=== PATIENT | male | born 1945 | race Caucasian/White ===

== ENCOUNTER 2018-08-23 14:06 | Inpatient (IN) ==
[2018-08-23] MEDS ORDERED: Acetaminophen 325 MG TABLET PO PRN (20:45)
[2018-08-23] MEDS ORDERED: Ondansetron ODT 4 MG TAB.RAPDIS SL PRN (20:45)
[2018-08-23] MEDS ORDERED: Mag Hydrox/Al Hydrox/Simeth 30 ML UDC PO PRN (20:45)
[2018-08-23] MEDS: *HR* Ticagrelor 90 MG TABLET PO SCH (22:00)
[2018-08-23] MEDS: Apixaban 5 MG TABLET PO SCH (22:00)
[2018-08-23] MEDS: Albuterol 2.5 MG/3 ML NEBULIZER IH SCH (22:23)
[2018-08-24 05:55] LABS: Basophils % 0.2 %; Eosinophils % 0.1 %; Hematocrit 44.7 % (37.5-50.1); Hemoglobin 15.1 g/dL (12.9-16.9); Immature Granulocytes % 0.5 % (0-4); Lymphocytes # 2.3 K/mcL (0.6-4.6); Mean Corpuscular HGB Conc 33.8 g/dL (31.6-35.5); Mean Corpuscular Hemoglobin 29.3 pg (28.0-33.3); Mean Corpuscular Volume 86.6 fL (83.0-100.0); Mean Platelet Volume 11.1 fL (9.4-12.4); Monocytes # 1.7 K/mcL (0.0-1.3); Monocytes % 9.4 %; Neutrophils # 13.5 K/mcL (1.6-8.9); Platelet Count 345 K/mcL (140-400); Red Blood Count 5.16 M/mcL (4.19-5.50); Segmented Neutrophils % 76.8 %; White Blood Count 17.6 K/mcL (4.3-11.1)
[2018-08-24 06:14] LABS: Alanine Aminotransferase 42 Units/L (7-52); Albumin 3.2 g/dL (3.5-5.7); Albumin/Globulin Ratio 1.1 (1.1-2.2); Alkaline Phosphatase 45 Units/L (34-104); Aspartate Amino Transferase 20 Units/L (13-39); BUN/Creatinine Ratio 20 (6-26); Bilirubin,Total 0.8 mg/dL (0.3-1.0); Blood Urea Nitrogen 21 mg/dL (8-23); Calcium 8.4 mg/dL (8.6-10.3); Carbon Dioxide 28 mEq/L (23-29); Chloride 105 mEq/L (98-107); Globulin 2.9 g/dL (2.4-3.5); Glucose 109 mg/dL (70-105); Magnesium 2.5 mg/dL (1.6-2.6); Osmolality,Calculated 292 (280-300); Potassium 3.4 mEq/L (3.5-5.1); Sodium 139 mEq/L (136-145); Total Protein 6.1 g/dL (6.4-8.9); eGFR For African Americans > 60 (> 60); eGFR For Non-African Americans > 60 (> 60)
[2018-08-24] MEDS: Albuterol 2.5 MG/3 ML NEBULIZER IH SCH ×4 (06:54→19:17)
[2018-08-24] MEDS ORDERED: BISOPROLOL PO SCH (09:00)
[2018-08-24] MEDS ORDERED: PRAVASTATIN 40MG PO SCH (09:00)
[2018-08-24] MEDS: *HR* Ticagrelor 90 MG TABLET PO SCH ×2 (09:12→21:24)
[2018-08-24] MEDS: Diltiazem CD (24hr) 180 MG CAPSULE PO SCH (09:13)
[2018-08-24] MEDS: Apixaban 5 MG TABLET PO SCH ×2 (09:13→21:24)
[2018-08-24] MEDS: Famotidine 20 MG TABLET PO SCH (09:13)
[2018-08-24] MEDS: hydroCHLOROthiazide 25 MG TABLET PO SCH (09:13)
[2018-08-24] MEDS: Loratadine/Pseudophed (12 HR) 1 EACH TABLET PO SCH (09:16)
--- NOTE | 2018-08-24 10:21 | Internal Med History&Physical ---
Date of Encounter: 08/24/18 Time of Encounter: 10:14 Assessment and Plan (1) CVA (cerebral vascular accident) Current visit: Yes Status: Acute Patient was transferred to this facility from an area hospital he was treated for an acute left CVA resulting in her right hemiparesis. Patient shows severe weakness to his right upper extremity, more so approximately with a muscle strength of 1/5. Distally on the right arm patient has a 4/5 muscle strength for grasp. Right lower extremity and 4/5 muscle strength. Left extremity is 5/5 muscle strength. Has had an increase of muscle strength right distal arm since his initial CVA. Patient was transferred here for continued rehabilitation due to his right hemiparesis. Patient also shows a 60% right coronary artery stenosis which was noted to be treated nonsurgically at this time. During his stay they had changed him from Plavix to Brilinta preparation of medical management patient also remains on Eliquis at this time. We will continue with current medications and plan a care. We will have a systolic blood pressure goal of less than 160. Therapy evaluation pending. Qualifiers: CVA mechanism: unspecified Qualified Code(s): I63.9 - Cerebral infarction, unspecified (2) COPD (chronic obstructive pulmonary disease) Current visit: Yes Status: Acute No acute issues. Patient's lungs are clear throughout upper choi but noted diminished basilar choi with scattered rales. Patient denies any dyspnea or productive cough. We will continue with current bronchodilators and medications. Qualifiers: Emphysema type: unspecified Qualified Code(s): J43.9 - Emphysema, unspecified (3) Atrial fibrillation Current visit: Yes Status: Acute Patient continues with atrial fibrillation with a controlled ventricular rate less than 100. We will continue with current medications which include Eliquis. Qualifiers: Atrial fibrillation type: unspecified Qualified Code(s): I48.91 - Unspeci fied atrial fibrillation (4) CAD (coronary artery disease) Current visit: Yes Status: Acute No acute issues. Patient with a history of coronary stents. Remains on purulent at this time. As any chest palpitations or discomforts. We will continue with current medications Qualifiers: Coronary Disease-Associated Artery/Lesion type: unspecified vessel or lesion type Associated angina: angina presence unspecified Qualified Code(s): I25.10 - Atherosclerotic heart disease of [place] coronary artery without angina pectoris (5) HTN (hypertension) Current visit: Yes Status: Acute Vital signs have remained stable during his stay. We will maintain a systolic blood pressure goal of less than 160. Qualifiers: Hypertension type: unspecified Qualified Code(s): I10 - Essential (primary) hypertension Internal Medicine - H&P: HPI Chief complaint: left CVA Admitted From: Hospital to Hospital Transfer Plans for Post Hospital Care: Home History of present illness: Mr. Paige is a 72 year old male, who was transferred to this facility from an [facility] where he was treated for an acute left central gyrus infarct, which resulted in right hemiparesis. Patient shows significant proximal weakness to the right upper extremity which is 1/5 but his distal movement is at 4/5 with hand grasp. His right lower extremity shows 4+/5. Left extremities currently are 5/5. Patient also showed a 60% stenosis of the left carotid artery, which no surgical interventions were performed during his stay and will be followed medically as an outpatient. Patient did have some changes to his medications to include a switch from Plavix to Brilinta in response to his stenosis. Patient was originally on the Plavix due to his history of coronary artery disease type included coronary stents. Patient also with atrial fibrillation and remains on Eliquis. Patient also with a history of COPD, hypertension and idiopathic angioedema. Patient states that he occasionally has an allergic-type flareup in which she takes prednisone and Benadryl when necessary but states he has not had one in several weeks. Patient's hospital recovery was uneventful and he was transferred to this facility for further rehabilitation due to his right hemiparesis and generalized weakness. Patient denies any current discomforts or shortness of breath. Patient denies any fever/chills or productive cough. He denies any dyspnea with exertion or orthopnea. Denies any dysuria. Patient was noted to have leukocytosis this morning with a WBC of 17.6. Per medical records patient had a elevated WBC while hospitalized at ranging between 1314. Past Med Surg Social Fam HX - Past Medical History Medical history: arthritis, atrial fibrillation, COPD, CVA, glaucoma, hyperlipidemia, hypertension Additional medical history: 3 cardiac stents, cardiac stenosis - Past Surgical History Surgical History: splenectomy, other Additional surgical history: fatty tumor removed from left leg, heart cath 2011, enlarged prostate, colonoscopy, intracocular lens - Social History Smoking Status: Never smoker Smokeless Tobacco Status: Yes Alcohol use: none Drug use: none - Family History Father Age: 47 Living Status: Hx Family Cardiac Disorders: Yes Mother Age: 85 Living Status: Hx Family Cardiac Disorders: Yes Sister Living Status: Hx Family Cancer: Yes Internal Medicine - H&P: Meds Albuterol Neb [Proventil Neb] 2.5 mg IH QID 08/23/18 [History] Apixaban [Eliquis] 5 mg PO BID 08/23/18 [History] Beclomethasone Dip 40mcg REDIH [Qvar 40 mcg REDIHALER] 2 puff IH BID 08/23/18 [History] Bisoprolol Fumarate [Zebeta] 20 mg PO DAILY 08/23/18 [History] Diltiazem CD (24hr) [Cardizem CD] 180 mg PO DAILY 08/23/18 [History] Famotidine [Pepcid] 20 mg PO DAILY 08/23/18 [History] Loratadine/Pseudophed (12 HR) [Claritin D (12HR)] 1 each PO DAILY 08/23/18 [History] Pravastatin Sodium [Pravachol] 40 mg PO DAILY 08/23/18 [History] Ticagrelor [Brilinta] 90 mg PO BID 08/23/18 [History] hydroCHLOROthiazide [Hydrochlorothiazide] 25 mg PO DAILY 08/23/18 [History] Allergy/AdvReac Type Severity Reaction Status Date / Time aspirin AdvReac See Verified 08/23/18 20:38 Comments atorvastatin [From Lipitor] AdvReac See Verified 08/23/18 20:38 Comments Iodinated Contrast- Oral and AdvReac Difficulty Verified 08/23/18 20:39 IV Dye Breathing peanut AdvReac Difficulty Verified 08/23/18 20:38 Breathing Penicillins [PCN] AdvReac See Verified 08/23/18 20:39 Comments All Systems PM: A 10-system review of systems was performed and is negative for pertinent findings except as documented above in the HPI. - Constitutional Constitutional: as per HPI, no chills, no fever(s), no night sweats - EENT Eyes: as per HPI, no change in vision, no discharge, no pain, no photophobia Ears: as per HPI, no ear discharge, no ear pain, no tinnitus Nose, mouth and throat: as per HPI, no dysphagia, no nasal discharge, no neck pain, no sore throat - Breasts Breasts: as per HPI - Cardiovascular Cardiovascular ROS IM: as per HPI, no chest pain, no diaphoresis, no dyspnea, no lightheadedness, no palpitations, no syncope - Respiratory Respiratory: as per HPI, no cough, no dyspnea, no wheezing, no excessive phlegm production - Gastrointestinal Gastrointestinal: as per HPI, no abdominal pain, no diarrhea, no hematemesis, no hematochezia, no melena, no nausea, no vomiting - Genitourinary Genitourinary ROS male: as per HPI - Musculoskeletal Musculoskeletal ROS IM: as per HPI, no numbness, no tingling - Integumentary Integumentary IM: as per HPI, no rash, no unusual bruising - Neurological Neurological ROS: as per HPI, no confusion, no convulsions, no focal weakness, no numbness, no tingling, no tremor(s) - Psychiatric Psychiatric: as per HPI - Endocrine Endocrine IM: as per HPI - Hematologic/Lymphatic Hematologic/Lymphatic: no easy bruising - Constitutional Vitals: Temp Pulse Resp BP Pulse Ox 98.1 F 66 16 128/48 93 08/24/18 07:32 08/24/18 07:32 08/24/18 07:32 08/24/18 07:32 08/24/18 07:32 General appearance: Present: A&O X 3, pleasant - Head Head exam: Present: atraumatic, normocephalic - Eye Eye exam: Present: PERRL, conjuntiva pink, sclera anicteric Pupils: Present: PERRL - Neck Neck exam general surgery: Present: supple, trachea midline. Absent: lymphadenopathy - Respiratory Respiratory exam: Present: CTAB, rales. Absent: accessory muscle use, rhonchi, wheezes Additional comments: Lungs are clear throughout upper choi and noted diminished breath sounds to lower with scattered fine rales heard posteriorly to the bases. Respiratory effort appears relaxed while at rest. No productive cough noted. - Cardiovascular Cardiovascular exam: Present: irregular rhythm, RRR, +S1, +S2. Absent: diastolic murmur, gallop, rubs, systolic murmur Additional comments: Patient's heart rate remains irregular with a controlled ventricular rate less than 100. - GI/Abdominal GI/Abdominal exam: Present: normal bowel sounds, soft, no peritoneal signs. Absent: distended, tenderness - Extremities Exam Extremities exam: Present: warm, radial pulses palpable and symmetrical. Absent: calf tenderness, cyanotic, pedal edema - Neurological Exam Neurological exam: Present: CN II-XII intact, oriented X3. Absent: pronater drift, facial droop, speech deficit Additional comments: Patient has right hemiparesis with his right upper extremity showing more pronounced weakness proximally with a muscle strength of 1/5 to BF and TE. Right hand grasp and wrist flex/ext at 4/5. RLE at 4+/5 MS. LE at 5/5 - Skin Skin exam: Present: dry, intact Internal Med - H&P Results - Labs CBC & Chem 7: 08/24/18 05:10 08/24/18 05:10 Labs: Short CBC 08/24/18 Range/Units 05:10 WBC 17.6 H (4.3-11.1) K/mcL Hgb 15.1 (12.9-16.9) g/dL Hct 44.7 (37.5-50.1) % Plt Count 345 (140-400) K/mcL Neutrophils # 13.5 H (1.6-8.9) K/mcL BMP 08/24/18 05:10 Sodium 139 Potassium 3.4 L Chloride 105 Carbon Dioxide 28 BUN 21 Creatinine 1.05 Glucose 109 H Calcium 8.4 L Liver Function 08/24/18 Range/Units 05:10 Total Bilirubin 0.8 (0.3-1.0) mg/dL AST 20 (13-39) Units/L ALT 42 (7-52) Units/L Alkaline Phosphatase 45 (34-104) Units/L Albumin 3.2 L (3.5-5.7) g/dL
[2018-08-24] MEDS ORDERED: Albuterol 2.5 MG/3 ML NEBULIZER IH PRN (20:12)
[2018-08-25] MEDS: Albuterol 2.5 MG/3 ML NEBULIZER IH SCH ×2 (07:59→17:58)
[2018-08-25] MEDS: hydroCHLOROthiazide 25 MG TABLET PO SCH (09:31)
[2018-08-25] MEDS: Famotidine 20 MG TABLET PO SCH (09:31)
[2018-08-25] MEDS: Loratadine/Pseudophed (12 HR) 1 EACH TABLET PO SCH (09:31)
[2018-08-25] MEDS: Diltiazem CD (24hr) 180 MG CAPSULE PO SCH (09:31)
[2018-08-25] MEDS: Apixaban 5 MG TABLET PO SCH ×2 (09:32→21:22)
[2018-08-25] MEDS: *HR* Ticagrelor 90 MG TABLET PO SCH ×2 (09:32→21:22)
[2018-08-25] MEDS: PRAVASTATIN 40MG PO SCH (09:35)
[2018-08-25] MEDS: BISOPROLOL PO SCH (09:38)
--- NOTE | 2018-08-25 11:04 | Internal Med Progress Note ---
Date of Encounter: 08/25/18 Time of Encounter: 11:02 - Assessment and plan (1) CVA (cerebral vascular accident) Current Visit: Yes Status: Acute Assessment and plan: No acute issues. Patient's neurological exam remains unchanged since admission. Patient has been dissipating and physical therapy and feels that he has shown some improvement in strength to his right upper extremity. Denies any current issues. We will continue with current medications and planning care. Qualifiers: CVA mechanism: unspecified Qualified Code(s): I63.9 - Cerebral infarction, unspecified (2) COPD (chronic obstructive pulmonary disease) Current Visit: Yes Status: Acute Assessment and plan: No acute issues. Patient's lungs remain clear with diminished breath sounds to the lower choi. No productive cough. Patient denies any dyspnea. We will continue with current medications and therapy Qualifiers: Emphysema type: unspecified Qualified Code(s): J43.9 - Emphysema, unspecified (3) Atrial fibrillation Current Visit: Yes Status: Acute Assessment and plan: No acute issues. Patient's heart rate remains irregular but he has a controlled ventricular rate less than 100. Patient will continue with current medications to include Eliquis. Qualifiers: Atrial fibrillation type: unspecified Qualified Code(s): I48.91 - Unspecified atrial fibrillation (4) CAD (coronary artery disease) Current Visit: Yes Status: Acute Assessment and plan: No acute issues. Patient denies any chest palpitations or discomforts. We will continue with his current medications. Tolerating therapy well. Qualifiers: Coronary Disease-Associated Artery/Lesion type: unspecified vessel or lesion type Associated angina: angina presence unspecified Qualified Code(s): I25.10 - Atherosclerotic heart disease of [place] coronary artery without angina pectoris (5) HTN (hypertension) Current Visit: Yes Status: Acute Assessment and plan: Patient systolic blood pressure is slightly elevated in the 150s but he has maintained the goal systolic pressure less than 160. We will continue with current medications. Qualifiers: Hypertension type: unspecified Qualified Code(s): I10 - Essential (primary) hypertension - Time Spent With Patient less than 15 minutes - Subjective Interval history: Patient appears relaxed currently denies any discomforts or shortness of breath. Patient states that he feels his strength is coming back to his right arm, which continues to remains proximally flaccid. - Constitutional Vitals: Temp Pulse Resp BP Pulse Ox 97.6 F 64 18 151/83 93 08/25/18 07:12 08/25/18 07:12 08/25/18 07:12 08/25/18 07:12 08/25/18 07:12 General appearance: Present: A&O X 3, pleasant - Head Head exam: Present: atraumatic, normocephalic - Eye Eye exam: Present: PERRL, conjuntiva pink, sclera anicteric Pupils: Present: PERRL - Neck Neck exam general surgery: Present: supple, trachea midline. Absent: lymphadenopathy - Respiratory Respiratory exam: Present: decreased breath sounds, CTAB. Absent: accessory muscle use, rales, rhonchi, wheezes - Cardiovascular Cardiovascular exam: Present: irregular rhythm, RRR, +S1, +S2. Absent: diastolic murmur, gallop, rubs, systolic murmur - GI/Abdominal GI/Abdominal exam: Present: normal bowel sounds, soft, no peritoneal signs. Absent: distended, tenderness - Extremities Exam Extremities exam: Present: warm, radial pulses palpable and symmetrical. Ab sent: calf tenderness, cyanotic, pedal edema - Neurological Exam Neurological exam: Present: CN II-XII intact, oriented X3. Absent: pronater drift, facial droop, speech deficit Additional comments: Patient continues with right hemiparesis. Right upper extremity is at a 2/5 proximally but distally patient is at 4/5 with hand grasp and wrist flex/ext. right lower extremity of 4/5. Left extremities of 5/5. - Skin Skin exam: Present: dry, intact Internal Medicine: Result - Labs CBC & Chem 7: 08/24/18 05:10 08/24/18 05:10 Consult Discharge Plan - Plan Referrals: Maulik Gregory MD [Primary Care Provider] -
[2018-08-25] MEDS: Melatonin 3 MG TABLET PO PRN (21:22)
[2018-08-26] MEDS: Albuterol 2.5 MG/3 ML NEBULIZER IH SCH ×2 (05:28→18:17)
[2018-08-26] MEDS: *HR* Ticagrelor 90 MG TABLET PO SCH ×2 (08:45→20:50)
[2018-08-26] MEDS: Famotidine 20 MG TABLET PO SCH (08:45)
[2018-08-26] MEDS: BISOPROLOL PO SCH (08:46)
[2018-08-26] MEDS: Diltiazem CD (24hr) 180 MG CAPSULE PO SCH (08:46)
[2018-08-26] MEDS: hydroCHLOROthiazide 25 MG TABLET PO SCH (08:46)
[2018-08-26] MEDS: Apixaban 5 MG TABLET PO SCH ×2 (08:46→20:49)
[2018-08-26] MEDS: PRAVASTATIN 40MG PO SCH (08:46)
[2018-08-26] MEDS: Loratadine/Pseudophed (12 HR) 1 EACH TABLET PO SCH (08:46)
--- NOTE | 2018-08-26 18:05 | Internal Med Progress Note ---
Date of Encounter: 08/26/18 Time of Encounter: 15:55 - Subjective Interval history: - Assessment and plan (1) CVA (cerebral vascular accident) Current Visit: Yes Status: Acute Assessment and plan: Pt is participating in therapy. His neurological exam remains unchanged since admission. Patient has been doing well in physical therapy and feels that he has shown some improvement in stren gth to his right upper extremity. Denies any current issues. We will continue with current medications and planning care. Qualifiers: CVA mechanism: unspecified Qualified Code(s): I63.9 - Cerebral infarction, unspecified (2) COPD (chronic obstructive pulmonary disease) Current Visit: Yes Status: Acute Assessment and plan: No acute issues. Patient's lungs remain clear with diminished breath sounds to the lower choi. No productive cough. Patient denies any dyspnea. We will continue with current medications and therapy Qualifiers: Emphysema type: unspecified Qualified Code(s): J43.9 - Emphysema, unspecified (3) Atrial fibrillation Current Visit: Yes Status: Acute Assessment and plan: no CP no sob. Patient's heart rate remains irregular but he has a controlled ventricular rate less than 100. Patient will continue with current medications to include Eliquis. Qualifiers: Atrial fibrillation type: unspecified Qualified Code(s): I48.91 - Unspecified atrial fibrillation (4) CAD (coronary artery disease) Current Visit: Yes Status: Acute Assessment and plan: No acute issues. Patient denies any chest palpitations or discomforts. We will continue with his current medications. Tolerating therapy well. Qualifiers: Coronary Disease-Associated Artery/Lesion type: unspecified vessel or lesion type Associated angina: angina presence unspecified Qualified Code(s): I25.10 - Atherosclerotic heart disease of [place] coronary artery without angina pectoris (5) HTN (hypertension) Current Visit: Yes Status: Acute Assessment and plan: Patient systolic blood pressure is slightly elevated in the 150s but he has maintained the goal systolic pressure less than 160. We will continue with current medications. Qualifiers: Hypertension type: unspecified Qualified Code(s): I10 - Essential (primary) hypertension - Time Spent With Patient less than 15 minutes - Subjective Interval history: Patient appears to be in good mood he says he has more energy. denies any discomforts or shortness of breath. Patient states that he feels his strength is coming back to his right arm, which continues to remains proximally flaccid. EXAM General appearance: Present: A&O X 3, pleasant - Head Head exam: Present: atraumatic, normocephalic - Eye Eye exam: Present: PERRL, conjuntiva pink, sclera anicteric Pupils: Present: PERRL - Neck Neck exam general surgery: Present: supple, trachea midline. Absent: lymphadenopathy - Respiratory Respiratory exam: Present: decreased breath sounds, CTAB. Absent: accessory muscle use, rales, rhonchi, wheezes - Cardiovascular Cardiovascular exam: Present: irregular rhythm, RRR, +S1, +S2. Absent: diastolic murmur, gallop, rubs, systolic murmur - GI/Abdominal GI/Abdominal exam: Present: normal bowel sounds, soft, no peritoneal signs. Absent: distended, tenderness - Extremities Exam Extremities exam: Present: warm, radial pulses palpable and symmetrical. Absent: calf tenderness, cyanotic, pedal edema - Neurological Exam Neurological exam: Present: CN II-XII intact, oriented X3. Absent: pronater drift, facial droop, speech deficit Additional comments: Patient continues with right hemiparesis. Right upper extremity is at a 2/5 proximally but distally patient is at 4/5 with hand grasp and wrist flex/ext. right lower extremity of 4/5. Left extremities of 5/5. - Skin Skin exam: Present: dry, intact - Constitutional Vitals: Temp Pulse Resp BP Pulse Ox 97.8 F 53 18 122/70 97 08/26/18 07:12 08/26/18 07:12 08/26/18 07:12 08/26/18 07:12 08/26/18 07:12 General appearance: Present: A&O X 3, pleasant Internal Medicine: Result - Labs CBC & Chem 7: 08/24/18 05:10 08/24/18 05:10 Consult Discharge Plan - Plan Referrals: Maulik Gregory MD [Primary Care Provider] -
[2018-08-26] MEDS: Melatonin 3 MG TABLET PO PRN (20:49)
[2018-08-27] MEDS: Albuterol 2.5 MG/3 ML NEBULIZER IH SCH ×2 (06:02→18:05)
[2018-08-27] MEDS: Famotidine 20 MG TABLET PO SCH (09:05)
[2018-08-27] MEDS: Apixaban 5 MG TABLET PO SCH ×2 (09:05→20:14)
[2018-08-27] MEDS: Loratadine/Pseudophed (12 HR) 1 EACH TABLET PO SCH (09:05)
[2018-08-27] MEDS: hydroCHLOROthiazide 25 MG TABLET PO SCH (09:05)
[2018-08-27] MEDS: BISOPROLOL PO SCH (09:06)
[2018-08-27] MEDS: *HR* Ticagrelor 90 MG TABLET PO SCH ×3 (09:06→20:14)
[2018-08-27] MEDS: PRAVASTATIN 40MG PO SCH (09:06)
[2018-08-27] MEDS: Diltiazem CD (24hr) 180 MG CAPSULE PO SCH (09:06)
--- NOTE | 2018-08-27 19:26 | Internal Med Progress Note ---
Date of Encounter: 08/27/18 Time of Encounter: 14:55 - Subjective Interval history: - Assessment and plan (1) CVA (cerebral vascular accident) Current Visit: Yes Status: Acute Assessment and plan: Pt is participating in therapy. His neurological exam remains unchanged since admission. Patient has been doing well in physical therapy and feels that he has shown some improvement in stren gth to his right upper extremity. Denies any current issues. We will continue with current medications and planning care. Qualifiers: CVA mechanism: unspecified Qualified Code(s): I63.9 - Cerebral infarction, unspecified (2) COPD (chronic obstructive pulmonary disease) Current Visit: Yes Status: Acute Assessment and plan: No acute issues. Patient's lungs remain clear with diminished breath sounds to the lower choi. No productive cough. Patient denies any dyspnea. We will continue with current medications and therapy Qualifiers: Emphysema type: unspecified Qualified Code(s): J43.9 - Emphysema, unspecified (3) Atrial fibrillation Current Visit: Yes Status: Acute Assessment and plan: no CP no sob. Patient's heart rate remains irregular but he has a controlled ventricular rate less than 100. Patient will continue with current medications to include Eliquis. Qualifiers: Atrial fibrillation type: unspecified Qualified Code(s): I48.91 - Unspecified atrial fibrillation (4) CAD (coronary artery disease) Current Visit: Yes Status: Acute Assessment and plan: No acute issues. Patient denies any chest palpitations or discomforts. We will continue with his current medications. Tolerating therapy well. Qualifiers: Coronary Disease-Associated Artery/Lesion type: unspecified vessel or lesion type Associated angina: angina presence unspecified Qualified Code(s): I25.10 - Atherosclerotic heart disease of [place] coronary artery without angina pectoris (5) HTN (hypertension) Current Visit: Yes Status: Acute Assessment and plan: Patient systolic blood pressure is slightly elevated in the 150s but he has maintained the goal systolic pressure less than 160. We will continue with current medications. Qualifiers: Hypertension type: unspecified Qualified Code(s): I10 - Essential (primary) hypertension - Time Spent With Patient less than 15 minutes - Subjective Interval history: Patient appears to be in good mood he says he has more energy. denies any discomforts or shortness of breath. Patient states that he feels his strength is coming back to his right arm, which continues to remains proximally flaccid. EXAM General appearance: Present: A&O X 3, pleasant - Head Head exam: Present: atraumatic, normocephalic - Eye Eye exam: Present: PERRL, conjuntiva pink, sclera anicteric Pupils: Present: PERRL - Neck Neck exam general surgery: Present: supple, trachea midline. Absent: lymphadenopathy - Respiratory Respiratory exam: Present: decreased breath sounds, CTAB. Absent: accessory muscle use, rales, rhonchi, wheezes - Cardiovascular Cardiovascular exam: Present: irregular rhythm, RRR, +S1, +S2. Absent: diastolic murmur, gallop, rubs, systolic murmur - GI/Abdominal GI/Abdominal exam: Present: normal bowel sounds, soft, no peritoneal signs. Absent: distended, tenderness - Extremities Exam Extremities exam: Present: warm, radial pulses palpable and symmetrical. Absent: calf tenderness, cyanotic, pedal edema - Neurological Exam Neurological exam: Present: CN II-XII intact, oriented X3. Absent: pronater drift, facial droop, speech deficit Additional comments: Patient continues with right hemiparesis. Right upper extremity is at a 2/5 proximally but distally patient is at 4/5 with hand grasp and wrist flex/ext. right lower extremity of 4/5. Left extremities of 5/5. - Skin Skin exam: Present: dry, intact - Constitutional Vitals: Temp Pulse Resp BP Pulse Ox 97.6 F 78 14 146/72 96 08/27/18 18:42 08/27/18 18:42 08/27/18 18:42 08/27/18 18:42 08/27/18 18:42 General appearance: Present: A&O X 3, pleasant Internal Medicine: Result - Labs CBC & Chem 7: 08/24/18 05:10 08/24/18 05:10 Consult Discharge Plan - Plan Referrals: Maulik Gregory MD [Primary Care Provider] -
[2018-08-28] MEDS: PRAVASTATIN 40MG PO SCH (08:57)
[2018-08-28] MEDS: Loratadine/Pseudophed (12 HR) 1 EACH TABLET PO SCH (08:57)
[2018-08-28] MEDS: BISOPROLOL PO SCH (08:57)
[2018-08-28] MEDS: hydroCHLOROthiazide 25 MG TABLET PO SCH (08:57)
[2018-08-28] MEDS: Apixaban 5 MG TABLET PO SCH ×2 (08:57→21:15)
[2018-08-28] MEDS: Famotidine 20 MG TABLET PO SCH (08:57)
[2018-08-28] MEDS: *HR* Ticagrelor 90 MG TABLET PO SCH ×2 (08:57→21:16)
[2018-08-28] MEDS: Diltiazem CD (24hr) 180 MG CAPSULE PO SCH (08:57)
[2018-08-28] MEDS: Albuterol 2.5 MG/3 ML NEBULIZER IH SCH ×2 (10:03→18:27)
--- NOTE | 2018-08-28 10:56 | Internal Med Progress Note ---
Date of Encounter: 08/28/18 Time of Encounter: 10:54 - Assessment and plan (1) CVA (cerebral vascular accident) Current Visit: Yes Status: Acute Assessment and plan: Continue PT, OT and ST. Will follow progress. No new neurological deficits. Assist with ADLs as necessary. Follow up with neurologist as scheduled. Qualifiers: CVA mechanism: unspecified Qualified Code(s): I63.9 - Cerebral infarction, unspecified (2) COPD (chronic obstructive pulmonary disease) Current Visit: Yes Status: Acute Assessment and plan: Stable. Monitor. Qualifiers: Emphysema type: unspecified Qualified Code(s): J43.9 - Emphysema, uns pecified (3) Atrial fibrillation Current Visit: Yes Status: Acute Assessment and plan: Rate and rhythm stable. Continue eliquis Qualifiers: Atrial fibrillation type: unspecified Qualified Code(s): I48.91 - Unspecified atrial fibrillation (4) CAD (coronary artery disease) Current Visit: Yes Status: Acute Assessment and plan: stable. Denies chest pain. Continue current medication. Qualifiers: Coronary Disease-Associated Artery/Lesion type: unspecified vessel or lesion type Associated angina: angina presence unspecified Qualified Code(s): I25.10 - Atherosclerotic heart disease of [place] coronary artery without angina pectoris (5) HTN (hypertension) Current Visit: Yes Status: Acute Assessment and plan: Controlled with current medication. Monitor blood pressure. Qualifiers: Hypertension type: unspecified Qualified Code(s): I10 - Essential (primary) hypertension - Time Spent With Patient less than 15 minutes - Subjective Interval history: Participating well with therapy. Able to propel self in wheelchair. Denies fever, chills, nausea vomiting or diarrhea. Denies shortness of breath or chest pain. Appetite and hydration. - Constitutional Vitals: Temp Pulse Resp BP Pulse Ox 98.6 F 64 16 147/79 96 08/28/18 07:23 08/28/18 07:23 08/28/18 07:23 08/28/18 07:23 08/28/18 07:23 General appearance: Present: A&O X 3, pleasant - Head Head exam: Present: atraumatic, normocephalic - Eye Eye exam: Present: PERRL, conjuntiva pink, sclera anicteric Pupils: Present: PERRL - Neck Neck exam general surgery: Present: supple, trachea midline. Absent: lymphadenopathy - Respiratory Respiratory exam: Present: CTAB. Absent: accessory muscle use, rales, rhonchi, wheezes Additional comments: Diminished and bilateral basis - Cardiovascular Cardiovascular exam: Present: irregular rhythm, +S1, +S2. Absent: diastolic murmur, gallop, rubs, systolic murmur - GI/Abdominal GI/Abdominal exam: Present: normal bowel sounds, soft, no peritoneal signs. Absent: distended, tenderness - Extremities Exam Extremities exam: Present: warm, radial pulses palpable and symmetrical. Absent: calf tenderness, cyanotic, pedal edema Additional comments: Right hand strength 3\5 - Neurological Exam Neurological exam: Present: CN II-XII intact, oriented X3, no focal deficits. Absent: pronater drift, facial droop, speech deficit - Skin Skin exam: Present: dry, intact Internal Medicine: Result - Labs CBC & Chem 7: 08/24/18 05:10 08/24/18 05:10 Consult Discharge Plan - Plan Referrals: Maulik Gregory MD [Primary Care Provider] -
[2018-08-28 17:22] LABS: Basophils # 0.1 K/mcL (0.0-0.2); Basophils % 0.4 %; Eosinophils # 0.2 K/mcL (0.0-0.6); Eosinophils % 1.3 %; Hematocrit 51.4 % (37.5-50.1); Hemoglobin 17.2 g/dL (12.9-16.9); Immature Granulocytes % 0.5 % (0-4); Lymphocytes # 2.6 K/mcL (0.6-4.6); Lymphocytes % 18.5 %; Mean Corpuscular HGB Conc 33.5 g/dL (31.6-35.5); Mean Corpuscular Hemoglobin 28.8 pg (28.0-33.3); Mean Platelet Volume 10.4 fL (9.4-12.4); Monocytes # 1.3 K/mcL (0.0-1.3); Monocytes % 9.6 %; Neutrophils # 9.6 K/mcL (1.6-8.9); Platelet Count 348 K/mcL (140-400); Red Blood Count 5.98 M/mcL (4.19-5.50); Red Cell Distribution Width 15.5 % (11.5-14.5); Segmented Neutrophils % 69.7 %; White Blood Count 13.8 K/mcL (4.3-11.1)
[2018-08-28 17:40] LABS: Alanine Aminotransferase 33 Units/L (7-52); Albumin 3.9 g/dL (3.5-5.7); Albumin/Globulin Ratio 1.1 (1.1-2.2); Alkaline Phosphatase 52 Units/L (34-104); Aspartate Amino Transferase 24 Units/L (13-39); BUN/Creatinine Ratio 14 (6-26); Bilirubin,Total 0.9 mg/dL (0.3-1.0); Blood Urea Nitrogen 17 mg/dL (8-23); Calcium 9.1 mg/dL (8.6-10.3); Carbon Dioxide 26 mEq/L (23-29); Chloride 99 mEq/L (98-107); Globulin 3.6 g/dL (2.4-3.5); Glucose 112 mg/dL (70-105); Osmolality,Calculated 282 (280-300); Potassium 3.8 mEq/L (3.5-5.1); Sodium 135 mEq/L (136-145); Total Protein 7.5 g/dL (6.4-8.9); eGFR For African Americans > 60 (> 60); eGFR For Non-African Americans 58 (> 60)
[2018-08-29] MEDS: Albuterol 2.5 MG/3 ML NEBULIZER IH SCH ×2 (07:48→21:11)
[2018-08-29] MEDS: Famotidine 20 MG TABLET PO SCH (08:31)
[2018-08-29] MEDS: Apixaban 5 MG TABLET PO SCH ×2 (08:31→21:11)
[2018-08-29] MEDS: Loratadine/Pseudophed (12 HR) 1 EACH TABLET PO SCH (08:31)
[2018-08-29] MEDS: Diltiazem CD (24hr) 180 MG CAPSULE PO SCH (08:31)
[2018-08-29] MEDS: hydroCHLOROthiazide 25 MG TABLET PO SCH (08:31)
[2018-08-29] MEDS: *HR* Ticagrelor 90 MG TABLET PO SCH ×2 (08:31→21:11)
[2018-08-29] MEDS: BISOPROLOL PO SCH (08:38)
[2018-08-29] MEDS: PRAVASTATIN 40MG PO SCH (08:40)
--- NOTE | 2018-08-29 09:38 | Internal Med Progress Note ---
Date of Encounter: 08/29/18 Time of Encounter: 09:36 - Assessment and plan (1) CVA (cerebral vascular accident) Current Visit: Yes Status: Acute Assessment and plan: Continue PT, OT and ST. Will follow progress. No new neurological deficits. Assist with ADLs as necessary. Follow up with neurologist as scheduled. Qualifiers: CVA mechanism: unspecified Qualified Code(s): I63.9 - Cerebral infarction, unspecified (2) COPD (chronic obstructive pulmonary disease) Current Visit: Yes Status: Acute Assessment and plan: Stable. Monitor. Qualifiers: Emphysema type: unspecified Qualified Code(s): J43.9 - Emphysema, uns pecified (3) Atrial fibrillation Current Visit: Yes Status: Acute Assessment and plan: Rate and rhythm stable. Continue eliquis Qualifiers: Atrial fibrillation type: unspecified Qualified Code(s): I48.91 - Unspecified atrial fibrillation (4) CAD (coronary artery disease) Current Visit: Yes Status: Acute Assessment and plan: stable. Denies chest pain. Continue current medication. Qualifiers: Coronary Disease-Associated Artery/Lesion type: unspecified vessel or lesion type Associated angina: angina presence unspecified Qualified Code(s): I25.10 - Atherosclerotic heart disease of [place] coronary artery without angina pectoris (5) HTN (hypertension) Current Visit: Yes Status: Acute Assessment and plan: stable. continue current meds. monitor BP. Qualifiers: Hypertension type: unspecified Qualified Code(s): I10 - Essential (primary) hypertension - Subjective Interval history: Participating well with therapy. Able to propel self in wheelchair. Denies fev er, chills, nausea vomiting or diarrhea. Denies shortness of breath or chest pain. maintaining appetite and hydration. states he slept well last night. - Constitutional Vitals: Temp Pulse Resp BP Pulse Ox 97.5 F L 67 18 131/67 95 08/29/18 07:04 08/29/18 07:04 08/29/18 07:04 08/29/18 07:04 08/29/18 07:04 General appearance: Present: A&O X 3, pleasant, no acute distress, answers questions appropriately - Head Head exam: Present: atraumatic, normocephalic - Eye Eye exam: Present: PERRL, conjuntiva pink, sclera anicteric Pupils: Present: PERRL - Neck Neck exam general surgery: Present: supple, trachea midline. Absent: lymphadenopathy - Respiratory Respiratory exam: Present: CTAB. Absent: accessory muscle use, rales, rhonchi, wheezes - Cardiovascular Cardiovascular exam: Present: RRR, +S1, +S2. Absent: diastolic murmur, gallop, rubs, systolic murmur - GI/Abdominal GI/Abdominal exam: Present: normal bowel sounds, soft, no peritoneal signs. Absent: distended, tenderness - Extremities Exam Extremities exam: Present: warm, radial pulses palpable and symmetrical. Absent: calf tenderness, cyanotic, pedal edema Additional comments: right hand 4/5 strength, right arm 3/5 - Neurological Exam Neurological exam: Present: CN II-XII intact, oriented X3, no focal deficits. Absent: pronater drift, facial droop, speech deficit - Skin Skin exam: Present: dry, intact Additional comments: scattered ecchymosis. Internal Medicine: Result - Labs CBC & Chem 7: 08/28/18 17:09 08/28/18 17:09 Labs: Short CBC 08/28/18 Range/Units 17:09 WBC 13.8 H (4.3-11.1) K/mcL Hgb 17.2 H D (12.9-16.9) g/dL Hct 51.4 H (37.5-50.1) % Plt Count 348 (140-400) K/mcL Neutrophils # 9.6 H (1.6-8.9) K/mcL BMP 08/28/18 17:09 Sodium 135 L Potassium 3.8 Chloride 99 Carbon Dioxide 26 BUN 17 Creatinine 1.22 Glucose 112 H Calcium 9.1 Liver Function 08/28/18 Range/Units 17:09 Total Bilirubin 0.9 (0.3-1.0) mg/dL AST 24 (13-39) Units/L ALT 33 (7-52) Units/L Alkaline Phosphatase 52 (34-104) Units/L Albumin 3.9 (3.5-5.7) g/dL Consult Discharge Plan - Plan Referrals: Maulik Gregory MD [Primary Care Provider] -
[2018-08-30] MEDS: PRAVASTATIN 40MG PO SCH (09:04)
[2018-08-30] MEDS: Diltiazem CD (24hr) 180 MG CAPSULE PO SCH (09:04)
[2018-08-30] MEDS: Famotidine 20 MG TABLET PO SCH (09:04)
[2018-08-30] MEDS: Loratadine/Pseudophed (12 HR) 1 EACH TABLET PO SCH (09:04)
[2018-08-30] MEDS: hydroCHLOROthiazide 25 MG TABLET PO SCH (09:04)
[2018-08-30] MEDS: *HR* Ticagrelor 90 MG TABLET PO SCH ×2 (09:04→20:44)
[2018-08-30] MEDS: Apixaban 5 MG TABLET PO SCH ×2 (09:04→20:44)
[2018-08-30] MEDS: BISOPROLOL PO SCH (09:05)
[2018-08-30] MEDS: Albuterol 2.5 MG/3 ML NEBULIZER IH SCH ×2 (09:17→19:23)
--- NOTE | 2018-08-30 10:57 | Internal Med Progress Note ---
Date of Encounter: 08/30/18 Time of Encounter: 10:55 - Assessment and plan (1) CVA (cerebral vascular accident) Current Visit: Yes Status: Acute Assessment and plan: No acute issues. Patient's neurological exam remains unchanged since admission. Patient has been dissipating and physical therapy and feels that he has shown some improvement in strength to his right upper extremity. Denies any current issues. We will continue with current medications and planning care. Qualifiers: CVA mechanism: unspecified Qualified Code(s): I63.9 - Cerebral infarction, unspecified (2) COPD (chronic obstructive pulmonary disease) Current Visit: Yes Status: Acute Assessment and plan: No acute issues. Patient's lungs remain clear with diminished breath sounds to the lower choi. No productive cough. Patient denies any dyspnea. We will continue with current medications and therapy Qualifiers: Emphysema type: unspecified Qualified Code(s): J43.9 - Emphysema, unspecified (3) Atrial fibrillation Current Visit: Yes Status: Acute Assessment and plan: No acute issues. Patient's heart rate remains irregular but he has a controlled ventricular rate less than 100. Patient will continue with current medications to include Eliquis. Qualifiers: Atrial fibrillation type: unspecified Qualified Code(s): I48.91 - Unspecified atrial fibrillation (4) CAD (coronary artery disease) Current Visit: Yes Status: Acute Assessment and plan: No acute issues. Patient denies any chest palpitations or discomforts. We will continue with his current medications. Tolerating therapy well. Qualifiers: Coronary Disease-Associated Artery/Lesion type: unspecified vessel or lesion type Associated angina: angina presence unspecified Qualified Code(s): I25.10 - Atherosclerotic heart disease of [place] coronary artery without angina pectoris (5) HTN (hypertension) Current Visit: Yes Status: Acute Assessment and plan: Patient systolic blood pressure is slightly elevated in the 150s but he has maintained the goal systolic pressure less than 160. We will continue with current medications. Qualifiers: Hypertension type: unspecified Qualified Code(s): I10 - Essential (primary) hypertension - Time Spent With Patient less than 15 minutes - Subjective Interval history: Patient appears relaxed currently denies any discomforts or shortness of breath. Patient states that he feels his strength is coming back to his right arm, which continues to remains proximally flaccid. - Constitutional Vitals: Temp Pulse Resp BP Pulse Ox 98.5 F 57 16 144/80 97 08/30/18 07:10 08/30/18 07:10 08/30/18 07:10 08/30/18 07:10 08/30/18 07:10 General appearance: Present: A&O X 3, pleasant, no acute distress, answers questions appropriately - Head Head exam: Present: atraumatic, normocephalic - Eye Eye exam: Present: PERRL, conjuntiva pink, sclera anicteric Pupils: Present: PERRL - Neck Neck exam general surgery: Present: supple, trachea midline. Absent: l ymphadenopathy - Respiratory Respiratory exam: Present: CTAB. Absent: accessory muscle use, rales, rhonchi, wheezes - Cardiovascular Cardiovascular exam: Present: RRR, +S1, +S2. Absent: diastolic murmur, gallop, rubs, systolic murmur - GI/Abdominal GI/Abdominal exam: Present: normal bowel sounds, soft, no peritoneal signs. Absent: distended, tenderness - Extremities Exam Extremities exam: Present: warm, radial pulses palpable and symmetrical. Absent: calf tenderness, cyanotic, pedal edema - Neurological Exam Neurological exam: Present: CN II-XII intact, oriented X3. Absent: pronater drift, facial droop, speech deficit Additional comments: Patient continues with right hemiparesis, which is most pronounced proximally to his right upper extremity. Patient shows weakness proximally to right upper extremity but distally on the right arm patient has a 4/5 muscle strength on grasp and wrist flexion. On bicep flexion and triceps extension patient shows 1/5 muscle strength. RLE 4/5 Left extremities are 5/5 muscle strength. - Skin Skin exam: Present: dry, intact Internal Medicine: Result - Labs CBC & Chem 7: 08/28/18 17:09 08/28/18 17:09 Consult Discharge Plan - Plan Referrals: Maulik Gregory MD [Primary Care Provider] -
--- NOTE | 2018-08-30 16:35 | Psychological Evaluation ---
Date of Encounter: 08/30/18 Time of Encounter: 09:00 History of Present Illness History of present illness: Mr. Paige is a 72 year old male with a history of onset of right hemiparesis, speech changes, about 1 week ago. He was sent home from the local emergency room in [place] and then had persistent symptoms so was seen there again the next day and transferred to [facility] where he underwent evaluation and was found to have a stroke. His medication regimen was changed to include Brilinta and he was maintained on Eliquis. He knows of no other contributing factor besides atrial fibrillation. He has diminished strength in his extremities but this is actually improved over the last week. Past Medical History - Psychiatric History Psychiatric history: Reports: no psych history Home Medications and Allergies Albuterol Neb [Proventil Neb] 2.5 mg IH QID 08/23/18 [History] Apixaban [Eliquis] 5 mg PO BID 08/23/18 [History] Beclomethasone Dip 40mcg REDIH [Qvar 40 mcg REDIHALER] 2 puff IH BID 08/23/18 [History] Bisoprolol Fumarate [Zebeta] 20 mg PO DAILY 08/23/18 [History] Diltiazem CD (24hr) [Cardizem CD] 180 mg PO DAILY 08/23/18 [History] Famotidine [Pepcid] 20 mg PO DAILY 08/23/18 [History] Loratadine/Pseudophed (12 HR) [Claritin D (12HR)] 1 each PO DAILY 08/23/18 [History] Pravastatin Sodium [Pravachol] 40 mg PO DAILY 08/23/18 [History] Ticagrelor [Brilinta] 90 mg PO BID 08/23/18 [History] hydroCHLOROthiazide [Hydrochlorothiazide] 25 mg PO DAILY 08/23/18 [History] Allergy/AdvReac Type Severity Reaction Status Date / Time aspirin AdvReac See Verified 08/23/18 20:38 Comments atorvastatin [From Lipitor] AdvReac See Verified 08/23/18 20:38 Comments Iodinated Contrast- Oral and AdvReac Difficulty Verified 08/23/18 20:39 IV Dye Breathing peanut AdvReac Difficulty Verified 08/23/18 20:38 Breathing Penicillins [PCN] AdvReac See Verified 08/23/18 20:39 Comments Social History - Social History Social History: 54 years and 3 adult children - supportive family. 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 - Tobacco Use Smokeless Tobacco Status: Yes (chew) - Alcohol Use Alcohol Use: none - Drug Use Drug Use: none Cognitive/Emotional Assessment - Cognitive Ability Orientation: Person, Place, Time Speech Pattern: Normal rate, Normal rhythm, Normal tone, Appropriate Additional Findings: Able to immediately recall 3/3 words and 1/3 words after 5 min; 6 digits forward and 4 digits backward; Spelled WORLD forward and backward; Difficulty understanding serial 7's but could perform serial 3 from 20; could not name pres., previous pres, gov but idocated knowledge; able to perform mathematical calculations; insight was limited with regrad to current function and results of CVA and effects on functioning independently. - Emotional Status Mood Description: Depressed, Anxious Affect Description: Labile Coping Ability: Unsure about ability to cope Assessment & Plan - Diagnosis (1) Adjustment disorder with mixed anxiety and depressed mood - Prognosis Prognosis: Good - Treatment Plan Treatment Plan/Recommendations: Assist with developing and training coping strategies for managing emotional reaction to CVA and it's effects. Continue evaluating cognition. Treatment Frequency: weekly Next Session Date: 09/06/18 Procedures - Participants Therapy Participant: Patient, Family - Session Time Session Start Time: 09:00 Session Stop Time: 09:30
[2018-08-30] MEDS: Melatonin 3 MG TABLET PO PRN (20:44)
[2018-08-31] MEDS: Albuterol 2.5 MG/3 ML NEBULIZER IH SCH ×2 (05:20→19:34)
[2018-08-31] MEDS: hydroCHLOROthiazide 25 MG TABLET PO SCH (08:25)
[2018-08-31] MEDS: Loratadine/Pseudophed (12 HR) 1 EACH TABLET PO SCH (08:25)
[2018-08-31] MEDS: Famotidine 20 MG TABLET PO SCH (08:25)
[2018-08-31] MEDS: Apixaban 5 MG TABLET PO SCH ×2 (08:26→20:37)
[2018-08-31] MEDS: BISOPROLOL PO SCH (08:26)
[2018-08-31] MEDS: PRAVASTATIN 40MG PO SCH (08:26)
[2018-08-31] MEDS: Diltiazem CD (24hr) 180 MG CAPSULE PO SCH (08:26)
[2018-08-31] MEDS: *HR* Ticagrelor 90 MG TABLET PO SCH ×2 (08:26→20:37)
--- NOTE | 2018-08-31 10:29 | Internal Med Progress Note ---
Date of Encounter: 08/31/18 Time of Encounter: 10:27 - Assessment and plan (1) CVA (cerebral vascular accident) Current Visit: Yes Status: Acute Assessment and plan: Continue PT, OT and ST. Will follow progress. No new neurological deficits. Assist with ADLs as necessary. Follow up with neurologist as scheduled. Qualifiers: CVA mechanism: unspecified Qualified Code(s): I63.9 - Cerebral infarction, unspecified (2) COPD (chronic obstructive pulmonary disease) Current Visit: Yes Status: Acute Assessment and plan: Stable. Monitor. Qualifiers: Emphysema type: unspecified Qualified Code(s): J43.9 - Emphysema, uns pecified (3) Atrial fibrillation Current Visit: Yes Status: Acute Assessment and plan: Rate and rhythm stable. Continue eliquis Qualifiers: Atrial fibrillation type: unspecified Qualified Code(s): I48.91 - Unspecified atrial fibrillation (4) CAD (coronary artery disease) Current Visit: Yes Status: Acute Assessment and plan: stable. Denies chest pain. Continue current medication. Qualifiers: Coronary Disease-Associated Artery/Lesion type: unspecified vessel or lesion type Associated angina: angina presence unspecified Qualified Code(s): I25.10 - Atherosclerotic heart disease of [place] coronary artery without angina pectoris (5) HTN (hypertension) Current Visit: Yes Status: Acute Qualifiers: Hypertension type: unspecified Qualified Code(s): I10 - Essential (primary) hypertension - Time Spent With Patient less than 15 minutes - Subjective Interval history: Participating well with therapy. Able to propel self in wheelchair. no new neurological deficits. Denies fever, chills, nausea vomiting or diarrhea. Denies shortness of breath or chest pain. maintaining appetite and hydration. - Constitutional Vitals: Temp Pulse Resp BP Pulse Ox 98.4 F 65 16 129/69 95 08/31/18 07:30 08/31/18 07:30 08/31/18 07:30 08/31/18 07:30 08/31/18 07:30 General appearance: Present: A&O X 3, pleasant, no acute distress, answers questions appropriately - Head Head exam: Present: atraumatic, normocephalic - Eye Eye exam: Present: PERRL, conjuntiva pink, sclera anicteric Pupils: Present: PERRL - Neck Neck exam general surgery: Present: supple, trachea midline. Absent: lymphadenopathy - Respiratory Respiratory exam: Present: CTAB. Absent: accessory muscle use, rales, rhonchi, wheezes - Cardiovascular Cardiovascular exam: Present: irregular rhythm, +S1, +S2. Absent: diastolic murmur, gallop, rubs, systolic murmur - GI/Abdominal GI/Abdominal exam: Present: normal bowel sounds, soft, no peritoneal signs. Absent: distended, tenderness - Extremities Exam Extremities exam: Present: warm, radial pulses palpable and symmetrical. Absent: calf tenderness, cyanotic, pedal edema Additional comments: RUE weakness, right hand grasp 4/5 - Neurological Exam Neurological exam: Present: CN II-XII intact, oriented X3, no focal deficits. Absent: pronater drift, facial droop, speech deficit - Skin Skin exam: Present: dry, intact Internal Medicine: Result - Labs CBC & Chem 7: 08/28/18 17:09 08/28/18 17:09 Consult Discharge Plan - Plan Referrals: Maulik Gregory MD [Primary Care Provider] -
[2018-09-01] MEDS: Albuterol 2.5 MG/3 ML NEBULIZER IH SCH ×2 (07:45→19:28)
--- NOTE | 2018-09-01 09:45 | Internal Med Progress Note ---
Date of Encounter: 09/01/18 Time of Encounter: 09:42 - Assessment and plan (1) CVA (cerebral vascular accident) Current Visit: Yes Status: Acute Assessment and plan: No acute issues. Patient's neurological exam remains unchanged since admission. Patient has been dissipating and physical therapy and feels that he has shown some improvement in strength to his right upper extremity. Denies any current issues. We will continue with current medications and planning care. Qualifiers: CVA mechanism: unspecified Qualified Code(s): I63.9 - Cerebral infarction, unspecified (2) COPD (chronic obstructive pulmonary disease) Current Visit: Yes Status: Acute Assessment and plan: No acute issues. Patient's lungs remain clear with diminished breath sounds to the lower choi. No productive cough. Patient denies any dyspnea. We will continue with current medications and therapy Qualifiers: Emphysema type: unspecified Qualified Code(s): J43.9 - Emphysema, unspecified (3) Atrial fibrillation Current Visit: Yes Status: Acute Assessment and plan: No acute issues. Patient's heart rate remains irregular but he has a controlled ventricular rate less than 100. Patient will continue with current medications to include Eliquis. Qualifiers: Atrial fibrillation type: unspecified Qualified Code(s): I48.91 - Unspecified atrial fibrillation (4) CAD (coronary artery disease) Current Visit: Yes Status: Acute Assessment and plan: No acute issues. Patient denies any chest palpitations or discomforts. We will continue with his current medications. Tolerating therapy well. Qualifiers: Coronary Disease-Associated Artery/Lesion type: unspecified vessel or lesion type Associated angina: angina presence unspecified Qualified Code(s): I25.10 - Atherosclerotic heart disease of [place] coronary artery without angina pectoris (5) HTN (hypertension) Current Visit: Yes Status: Acute Assessment and plan: Patient systolic blood pressure is slightly elevated in the 150s but he has maintained the goal systolic pressure less than 160. We will continue with current medications. Qualifiers: Hypertension type: unspecified Qualified Code(s): I10 - Essential (primary) hypertension - Time Spent With Patient less than 15 minutes - Subjective Interval history: Patient appears relaxed currently denies any discomforts or shortness of breath. Patient states that he feels his strength is coming back to his right arm, which continues to remains proximally weakened. . - Constitutional Vitals: Temp Pulse Resp BP Pulse Ox 98.0 F 53 19 133/64 98 09/01/18 06:42 09/01/18 06:42 09/01/18 07:53 09/01/18 06:42 09/01/18 07:53 General appearance: Present: A&O X 3, pleasant, no acute distress, answers questions appropriately - Head Head exam: Present: atraumatic, normocephalic - Eye Eye exam: Present: PERRL, conjuntiva pink, sclera anicteric Pupils: Present: PERRL - Neck Neck exam general surgery: Present: supple, trachea midline. Absent: lymphadenopathy - Respiratory Respiratory exam: Present: decreased breath sounds, CTAB. Absent: accessory muscle use, rales, rhonchi, wheezes - Cardiovascular Cardiovascular exam: Present: RRR, +S1, +S2. Absent: diastolic murmur, gallop, rubs, systolic murmur - GI/Abdominal GI/Abdominal exam: Present: normal bowel sounds, soft, no peritoneal signs. Absent: distended, tenderness - Extremities Exam Extremities exam: Present: warm, radial pulses palpable and symmetrical. Absent: calf tenderness, cyanotic, pedal edema - Neurological Exam Neurological exam: Present: CN II-XII intact, oriented X3. Absent: pronater drift, facial droop, speech deficit Additional comments: Patient continues to show proximal weakness right upper extremity with a muscle strength is 2/5 on bicep flexion. 1/5 on tricep extension. Distally patient has 5/5 muscle strength on hand grasp in wrist flexors/extend. Left extremities at 5/5 muscle strength. - Skin Skin exam: Present: dry, intact Internal Medicine: Result - Labs CBC & Chem 7: 08/28/18 17:09 08/28/18 17:09 Consult Discharge Plan - Plan Referrals: Maulik Gregory MD [Primary Care Provider] -
[2018-09-01] MEDS: Apixaban 5 MG TABLET PO SCH ×2 (09:59→20:47)
[2018-09-01] MEDS: hydroCHLOROthiazide 25 MG TABLET PO SCH (09:59)
[2018-09-01] MEDS: Loratadine/Pseudophed (12 HR) 1 EACH TABLET PO SCH (09:59)
[2018-09-01] MEDS: *HR* Ticagrelor 90 MG TABLET PO SCH ×2 (09:59→20:47)
[2018-09-01] MEDS: Famotidine 20 MG TABLET PO SCH (09:59)
[2018-09-01] MEDS: Diltiazem CD (24hr) 180 MG CAPSULE PO SCH (09:59)
[2018-09-01] MEDS: PRAVASTATIN 40MG PO SCH (10:02)
[2018-09-01] MEDS: BISOPROLOL PO SCH (10:04)
[2018-09-01] MEDS: Melatonin 3 MG TABLET PO PRN (20:47)
[2018-09-02] MEDS: BISOPROLOL PO SCH (08:28)
[2018-09-02] MEDS: Loratadine/Pseudophed (12 HR) 1 EACH TABLET PO SCH (08:29)
[2018-09-02] MEDS: *HR* Ticagrelor 90 MG TABLET PO SCH ×2 (08:29→20:33)
[2018-09-02] MEDS: PRAVASTATIN 40MG PO SCH (08:29)
[2018-09-02] MEDS: Apixaban 5 MG TABLET PO SCH ×2 (08:29→20:33)
[2018-09-02] MEDS: Famotidine 20 MG TABLET PO SCH (08:29)
[2018-09-02] MEDS: hydroCHLOROthiazide 25 MG TABLET PO SCH (08:29)
[2018-09-02] MEDS: Diltiazem CD (24hr) 180 MG CAPSULE PO SCH (08:29)
[2018-09-02] MEDS: Albuterol 2.5 MG/3 ML NEBULIZER IH SCH ×2 (09:42→20:33)
--- NOTE | 2018-09-02 10:42 | Internal Med Progress Note ---
Date of Encounter: 09/02/18 Time of Encounter: 10:40 - Assessment and plan (1) CVA (cerebral vascular accident) Current Visit: Yes Status: Acute Assessment and plan: Stable and improving slowly. Therapies continued. Qualifiers: CVA mechanism: unspecified Qualified Code(s): I63.9 - Cerebral infarction, unspecified (2) COPD (chronic obstructive pulmonary disease) Current Visit: Yes Status: Acute Assessment and plan: Clinically stable. Qualifiers: Emphysema type: unspecified Qualified Code(s): J43.9 - Emphysema, uns pecified (3) Atrial fibrillation Current Visit: Yes Status: Acute Assessment and plan: Rate controlled. Qualifiers: Atrial fibrillation type: unspecified Qualified Code(s): I48.91 - Unspecified atrial fibrillation (4) CAD (coronary artery disease) Current Visit: Yes Status: Acute Assessment and plan: Clinically stable without signs or symptoms. Qualifiers: Coronary Disease-Associated Artery/Lesion type: unspecified vessel or lesion type Associated angina: angina presence unspecified Qualified Code(s): I25.10 - Atherosclerotic heart disease of [place] coronary artery without angina pectoris (5) HTN (hypertension) Current Visit: Yes Status: Acute Assessment and plan: Controlled. Qualifiers: Hypertension type: unspecified Qualified Code(s): I10 - Essential (primary) hypertension (6) Adjustment disorder with mixed anxiety and depressed mood Current Visit: Yes Status: Acute Assessment and plan: He seems to be progressing with limited emotional lability to me. Occupational therapy noted that he had some couple of days ago. - Subjective Interval history: Patient is without complaint. He has had a bowel movement for a couple of days and we talked about use of laxatives if needed. Patient has no complaint of chest discomfort, dyspnea, orthopnea, palpitations, nausea or vomiting, constipation or diarrhea, other changes in bowel habits, difficulty with urination, rash or itching, or other new complaints, except as mentioned above. Review of systems is otherwise negative. I discussed management of patient's care with nursing staff. - Constitutional Vitals: Temp Pulse Resp BP Pulse Ox 97.7 F 70 16 121/59 93 09/02/18 08:00 09/02/18 08:00 09/02/18 08:00 09/02/18 08:00 09/02/18 08:00 Exam: Examination: (Except as mentioned above): General: In no apparent distress. Alert and oriented 3. Nondiaphoretic. Head: Atraumatic and normocephalic. Respiratory: No use of accessory muscles. Lungs are clear throughout. Normal airflow. Cardiovascular: Irregularly irregular consistent with atrial fibrillation, rate controlled, without murmur appreciated. Abdomen: Bowel sounds are normal. No hepatosplenomegaly mass or tenderness appreciated. Obese and therefore difficult to palpate deeply. Patient is examined upright in chair and this also limits exam. Extremities: No cyanosis clubbing or edema. Skin: Warm and non-diaphoretic with no new lesions noted. Internal Medicine: Result - Labs CBC & Chem 7: 08/28/18 17:09 08/28/18 17:09 Consult Discharge Plan - Plan Referrals: Maulik Gregory MD [Primary Care Provider] -
[2018-09-02] MEDS: Melatonin 3 MG TABLET PO PRN (20:32)
[2018-09-03] MEDS: Albuterol 2.5 MG/3 ML NEBULIZER IH SCH ×2 (05:29→18:07)
[2018-09-03] MEDS: Diltiazem CD (24hr) 180 MG CAPSULE PO SCH (08:04)
[2018-09-03] MEDS: *HR* Ticagrelor 90 MG TABLET PO SCH ×2 (08:04→19:50)
[2018-09-03] MEDS: Loratadine/Pseudophed (12 HR) 1 EACH TABLET PO SCH (08:04)
[2018-09-03] MEDS: Apixaban 5 MG TABLET PO SCH ×2 (08:05→19:50)
[2018-09-03] MEDS: BISOPROLOL PO SCH (08:05)
[2018-09-03] MEDS: hydroCHLOROthiazide 25 MG TABLET PO SCH (08:05)
[2018-09-03] MEDS: PRAVASTATIN 40MG PO SCH (08:05)
[2018-09-03] MEDS: Famotidine 20 MG TABLET PO SCH (08:05)
--- NOTE | 2018-09-03 15:42 | Internal Med Progress Note ---
Date of Encounter: 09/03/18 Time of Encounter: 15:40 - Assessment and plan (1) CVA (cerebral vascular accident) Current Visit: Yes Status: Acute Assessment and plan: Stable and improving slowly. Therapies continued. Qualifiers: CVA mechanism: unspecified Qualified Code(s): I63.9 - Cerebral infarction, unspecified (2) COPD (chronic obstructive pulmonary disease) Current Visit: Yes Status: Acute Assessment and plan: Clinically stable without acute issues. Qualifiers: Emphysema type: unspecified Qualified Code(s): J43.9 - Emphysema, unspecified (3) Atrial fibrillation Current Visit: Yes Status: Acute Assessment and plan: Rate is controlled. Qualifiers: Atrial fibrillation type: unspecified Qualified Code(s): I48.91 - Unspecified atrial fibrillation (4) CAD (coronary artery disease) Current Visit: Yes Status: Acute Assessment and plan: No current signs or symptoms. Qualifiers: Coronary Disease-Associated Artery/Lesion type: unspecified vessel or lesion type Associated angina: angina presence unspecified Qualified Code(s): I25.10 - Atherosclerotic heart disease of [place] coronary artery without angina pectoris (5) HTN (hypertension) Current Visit: Yes Status: Acute Assessment and plan: Controlled. Qualifiers: Hypertension type: unspecified Qualified Code(s): I10 - Essential (primary) hypertension (6) Adjustment disorder with mixed anxiety and depressed mood Current Visit: Yes Status: Acute Assessment and plan: Seems to be improving. - Subjective Interval history: Patient is without complaint. He is without problems with bowels or bladder. He is enjoying his day without therapies but states he wants to get back to work tomorrow. No other problems. Patient has no complaint of chest discomfort, dyspnea, orthopnea, palpitations, nausea or vomiting, constipation or diarrhea, other changes in bowel habits, difficulty with urination, rash or itching, or other new complaints, except as mentioned above. Review of systems is otherwise negative. I discussed management of patient's care with nursing staff. - Constitutional Vitals: Temp Pulse Resp BP Pulse Ox 97.7 F 68 16 103/57 94 09/03/18 07:19 09/03/18 07:19 09/03/18 07:19 09/03/18 07:19 09/03/18 07:19 Exam: General: In no apparent distress. Alert and oriented 3. Nondiaphoretic. Head: Atraumatic and normocephalic. Respiratory: No use of accessory muscles. Lungs are clear throughout. Normal airflow. Cardiovascular: Irregularly irregular consistent with atrial fibrillation, rate controlled, without murmur appreciated. Abdomen: Bowel sounds are normal. No hepatosplenomegaly mass or tenderness appreciated. Obese and therefore difficult to palpate deeply. Extremities: No cyanosis clubbing or edema. Skin: Warm and non-diaphoretic with no new lesions noted. Neurologic: Good motion at his right plantar flexion and dorsiflexion. He has clumsiness and weakness at his right upper extremity, lower aspect. However, his grasp is improving, nicely. He has mild right facial weakness. Internal Medicine: Result - Labs CBC & Chem 7: 08/28/18 17:09 08/28/18 17:09 Consult Discharge Plan - Plan Referrals: Maulik Gregory MD [Primary Care Provider] -
[2018-09-03] MEDS: Melatonin 3 MG TABLET PO PRN (19:50)
[2018-09-04 06:49] LABS: Basophils # 0.1 K/mcL (0.0-0.2); Basophils % 0.7 %; Eosinophils # 0.2 K/mcL (0.0-0.6); Eosinophils % 1.9 %; Hematocrit 45.4 % (37.5-50.1); Hemoglobin 15.6 g/dL (12.9-16.9); Immature Granulocytes % 0.3 % (0-4); Lymphocytes # 1.9 K/mcL (0.6-4.6); Lymphocytes % 16.9 %; Mean Corpuscular HGB Conc 34.4 g/dL (31.6-35.5); Mean Corpuscular Hemoglobin 28.9 pg (28.0-33.3); Mean Corpuscular Volume 84.2 fL (83.0-100.0); Mean Platelet Volume 10.6 fL (9.4-12.4); Monocytes # 1.3 K/mcL (0.0-1.3); Monocytes % 11.1 %; Platelet Count 307 K/mcL (140-400); Red Blood Count 5.39 M/mcL (4.19-5.50); Segmented Neutrophils % 69.1 %; White Blood Count 11.5 K/mcL (4.3-11.1)
[2018-09-04] MEDS: Albuterol 2.5 MG/3 ML NEBULIZER IH SCH ×2 (07:11→19:25)
[2018-09-04 07:16] LABS: BUN/Creatinine Ratio 14 (6-26); Blood Urea Nitrogen 15 mg/dL (8-23); Calcium 8.5 mg/dL (8.6-10.3); Carbon Dioxide 32 mEq/L (23-29); Chloride 100 mEq/L (98-107); Glucose 108 mg/dL (70-105); Osmolality,Calculated 289 (280-300); Potassium 3.3 mEq/L (3.5-5.1); Sodium 139 mEq/L (136-145); eGFR For African Americans > 60 (> 60); eGFR For Non-African Americans > 60 (> 60)
[2018-09-04] MEDS: Diltiazem CD (24hr) 180 MG CAPSULE PO SCH (07:53)
[2018-09-04] MEDS: hydroCHLOROthiazide 25 MG TABLET PO SCH (07:54)
[2018-09-04] MEDS: Apixaban 5 MG TABLET PO SCH ×2 (07:54→21:18)
[2018-09-04] MEDS: *HR* Ticagrelor 90 MG TABLET PO SCH ×2 (07:54→21:18)
[2018-09-04] MEDS: Famotidine 20 MG TABLET PO SCH (07:54)
[2018-09-04] MEDS: Loratadine/Pseudophed (12 HR) 1 EACH TABLET PO SCH (07:54)
[2018-09-04] MEDS: BISOPROLOL PO SCH (07:57)
[2018-09-04] MEDS: PRAVASTATIN 40MG PO SCH (07:57)
--- NOTE | 2018-09-04 10:05 | Internal Med Progress Note ---
Date of Encounter: 09/04/18 Time of Encounter: 10:03 - Assessment and plan (1) CVA (cerebral vascular accident) Current Visit: Yes Status: Acute Assessment and plan: He is resuming therapy and participating well, today. Qualifiers: Qualified Code(s): I63.9 - Cerebral infarction, unspecified (2) COPD (chronic obstructive pulmonary disease) Current Visit: Yes Status: Acute Assessment and plan: Clinically stable. Qualifiers: Qualified Code(s): J43.9 - Emphysema, unspecified (3) Atrial fibrillation Current Visit: Yes Status: Acute Assessment and plan: Rate is controlled. Qualifiers: Qualified Code(s): I48.91 - Unspecified atrial fibrillation (4) CAD (coronary artery disease) Current Visit: Yes Status: Acute Assessment and plan: No current signs or symptoms. Qualifiers: Qualified Code(s): I25.10 - Atherosclerotic heart disease of [place] coronary artery without angina pectoris (5) HTN (hypertension) Current Visit: Yes Status: Acute Assessment and plan: Controlled. Qualifiers: Qualified Code(s): I10 - Essential (primary) hypertension (6) Adjustment disorder with mixed anxiety and depressed mood Current Visit: Yes Status: Acute Assessment and plan: Seems stable to me. - Subjective Interval history: Patient is without complaint. He is able to move better and is pleased with this. Bowels moved this morning and he states normal. He denies other problems. Nursing notes that yesterday he was using chewing tobacco and he admits this. I strongly advised that he not do this. Patient has no complaint of chest discomfort, dyspnea, orthopnea, palpitations, nausea or vomiting, constipation or diarrhea, other changes in bowel habits, difficulty with urination, rash or itching, or other new complaints, except as mentioned above. Review of systems is otherwise negative. I discussed management of patient's care with nursing staff. - Constitutional Vitals: Temp Pulse Resp BP Pulse Ox 97.8 F 71 19 110/58 94 09/04/18 06:32 09/04/18 06:32 09/04/18 07:16 09/04/18 06:32 09/04/18 07:16 Exam: Examination: (Except as mentioned above): General: In no apparent distress. Alert and oriented 3. Nondiaphoretic. Head: Atraumatic and normocephalic. Respiratory: No use of accessory muscles. Lungs are clear throughout. Normal airflow. Cardiovascular: Irregularly irregular consistent with atrial fibrillation, rate controlled, without murmur appreciated. Abdomen: Bowel sounds are normal. No hepatosplenomegaly mass or tenderness appreciated. Obese and therefore difficult to palpate deeply. Patient is examined upright in chair and this also limits exam. Extremities: No cyanosis clubbing or edema. No cord or calf tenderness. Skin: Warm and non-diaphoretic with no new lesions noted. Neurologic: Essentially unchanged from yesterday. Internal Medicine: Result - Labs CBC & Chem 7: 09/04/18 06:27 09/04/18 06:27 Labs: Short CBC 09/04/18 Range/Units 06:27 WBC 11.5 H (4.3-11.1) K/mcL Hgb 15.6 D (12.9-16.9) g/dL Hct 45.4 (37.5-50.1) % Plt Count 307 (140-400) K/mcL Neutrophils # 8.0 (1.6-8.9) K/mcL BMP 09/04/18 06:27 Sodium 139 Potassium 3.3 L Chloride 100 Carbon Dioxide 32 H BUN 15 Creatinine 1.06 Glucose 108 H Calcium 8.5 L Consult Discharge Plan - Plan Referrals: Maulik Gregory MD [Primary Care Provider] -
--- NOTE | 2018-09-04 10:06 | Physcial Medicine-Consult Note ---
Date of Encounter: 09/04/18 Time of Encounter: 10:00 Physical Medicine - AP (1) CVA (cerebral vascular accident) Status: Acute Assessment and plan: No new neurological deficits. Continue PT, ST and OT. Will follow progress. Code(s): I63.9 - Cerebral infarction, unspecified SNOMED Code(s): 155379679 (2) COPD (chronic obstructive pulmonary disease) Status: Acute Code(s): J44.9 - Chronic obstructive pulmonary disease, unspecified SNOMED Code(s): 11237197 (3) Atrial fibrillation Status: Acute Assessment and plan: rate and rythm stable. continue Eliquis and Brillinta. Code(s): I48.91 - Unspecified atrial fibrillation SNOMED Code(s): 23294118 (4) CAD (coronary artery disease) Status: Acute Code(s): I25.10 - Atherosclerotic heart disease of [place] coronary artery without angina pectoris SNOMED Code(s): 65427289 (5) HTN (hypertension) Status: Acute Code(s): I10 - Essential (primary) hypertension SNOMED Code(s): 87629556 Physical Medicine - HPI - Data of Consult Patient: new to practice Consult date: 09/04/18 Requesting Physician: Nawaf Mulligan MD Primary Care Provider: Maulik Gregory MD - Consult Narrative Reason for consult: CVA History of present illness: Mr. Paige is a 72 year old male admitted to inpatient rehab s/p LCVA. presented to local ER with onset of right hemiparesis, speech changes He was sent home and then had persistent symptoms so was seen there again the next day and transferred to [facility] where he underwent evaluation and was found to have a stroke. history of afib and on Eliquis. He has diminished strength in his extremities but this is actually improved over the last couple weeks, leaving only slight weakness to LUE. Very tearful at times. denies any new neurological deficits. plan is to go home once therapy is complete. CC: Nawaf Mulligan MD Past Med Surg Social Fam HX - Past Medical History Medical history: arthritis, atrial fibrillation, COPD, CVA, glaucoma, hyperlipidemia, hypertension Additional medical history: 3 cardiac stents, cardiac stenosis - Past Surgical History Surgical History: splenectomy, other Additional surgical history: fatty tumor removed from left leg, heart cath 2012, enlarged prostate, colonoscopy, intracocular lens - Social History Smoking Status: Never smoker Smokeless Tobacco Status: Yes (chew) Alcohol use: none Drug use: none - Family History Father Age: 47 Living Status: Hx Family Cardiac Disorders: Yes Mother Age: 85 Living Status: Hx Family Cardiac Disorders: Yes Sister Living Status: Hx Family Cancer: Yes Medications and Allergies Albuterol Neb [Proventil Neb] 2.5 mg IH QID 08/23/18 [History] Apixaban [Eliquis] 5 mg PO BID 08/23/18 [History] Beclomethasone Dip 40mcg REDIH [Qvar 40 mcg REDIHALER] 2 puff IH BID 08/23/18 [History] Bisoprolol Fumarate [Zebeta] 20 mg PO DAILY 08/23/18 [History] Diltiazem CD (24hr) [Cardizem CD] 180 mg PO DAILY 08/23/18 [History] Famotidine [Pepcid] 20 mg PO DAILY 08/23/18 [History] Loratadine/Pseudophed (12 HR) [Claritin D (12HR)] 1 each PO DAILY 08/23/18 [History] Pravastatin Sodium [Pravachol] 40 mg PO DAILY 08/23/18 [History] Ticagrelor [Brilinta] 90 mg PO BID 08/23/18 [History] hydroCHLOROthiazide [Hydrochlorothiazide] 25 mg PO DAILY 08/23/18 [History] Allergy/AdvReac Type Severity Reaction Status Date / Time aspirin AdvReac See Verified 08/23/18 20:38 Comments atorvastatin [From Lipitor] AdvReac See Verified 08/23/18 20:38 Comments Iodinated Contrast- Oral and AdvReac Difficulty Verified 08/23/18 20:39 IV Dye Breathing peanut AdvReac Difficulty Verified 08/23/18 20:38 Breathing Penicillins [PCN] AdvReac See Verified 08/23/18 20:39 Comments Review of systems: negative except whats included in HPI. Physical Medicine - Exam - Constitutional Vitals: Temp Pulse Resp BP Pulse Ox 97.8 F 71 19 110/58 94 09/04/18 06:32 09/04/18 06:32 09/04/18 07:16 09/04/18 06:32 09/04/18 07:16 General appearance: no acute distress - Head Head exam: Present: atraumatic, normal inspection - Eye Eye exam: Present: EOMI, normal appearance Pupils: Present: normal accommodation, PERRL - ENT ENT exam: Present: mucous membranes moist - Neck Neck exam: Present: full ROM, normal inspection - Respiratory Respiratory exam: Present: CTAB - Cardiovascular Cardiovascular exam: Present: irregular rhythm - GI/Abdominal GI/Abdominal exam: Present: normal bowel sounds, soft - Extremities Exam Extremities exam: Present: normal capillary refill - Expanded Upper Extremity Exam Neuro motor exam: Present: fingers 2-5 abduction intact, thumb adduction intact, wrist extension intact - Neurological Exam Neurological exam: Present: oriented X3 - Psychiatric Psychiatric exam: Present: normal mood - Additional findings Additional findings: right shoulder strength / Physical Medicine - Results - Labs CBC & Chem 7: 09/04/18 06:27 09/04/18 06:27 Labs: Short CBC 09/04/18 Range/Units 06:27 WBC 11.5 H (4.3-11.1) K/mcL Hgb 15.6 D (12.9-16.9) g/dL Hct 45.4 (37.5-50.1) % Plt Count 307 (140-400) K/mcL Neutrophils # 8.0 (1.6-8.9) K/mcL BMP 09/04/18 06:27 Sodium 139 Potassium 3.3 L Chloride 100 Carbon Dioxide 32 H BUN 15 Creatinine 1.06 Glucose 108 H Calcium 8.5 L Consult Discharge Plan - Plan Referrals: Maulik Gregory MD [Primary Care Provider] -
[2018-09-04] MEDS: Melatonin 3 MG TABLET PO PRN (21:18)
[2018-09-05] MEDS: Albuterol 2.5 MG/3 ML NEBULIZER IH SCH ×2 (06:43→19:11)
[2018-09-05] MEDS: hydroCHLOROthiazide 25 MG TABLET PO SCH (08:33)
[2018-09-05] MEDS: Diltiazem CD (24hr) 180 MG CAPSULE PO SCH (08:33)
[2018-09-05] MEDS: Famotidine 20 MG TABLET PO SCH (08:33)
[2018-09-05] MEDS: Loratadine/Pseudophed (12 HR) 1 EACH TABLET PO SCH (08:34)
[2018-09-05] MEDS: PRAVASTATIN 40MG PO SCH (08:34)
[2018-09-05] MEDS: *HR* Ticagrelor 90 MG TABLET PO SCH ×2 (08:34→21:32)
[2018-09-05] MEDS: Apixaban 5 MG TABLET PO SCH ×2 (08:34→21:32)
[2018-09-05] MEDS: BISOPROLOL PO SCH (08:34)
--- NOTE | 2018-09-05 10:50 | Internal Med Progress Note ---
Date of Encounter: 09/05/18 Time of Encounter: 10:48 - Assessment and plan (1) CVA (cerebral vascular accident) Current Visit: Yes Status: Acute Assessment and plan: Continue PT, OT and ST. Will follow progress. No new neurological deficits. Assist with ADLs as necessary. Follow up with neurologist as scheduled. Qualifiers: CVA mechanism: unspecified Qualified Code(s): I63.9 - Cerebral infarction, unspecified (2) COPD (chronic obstructive pulmonary disease) Current Visit: Yes Status: Acute Assessment and plan: Stable. Monitor. Qualifiers: Emphysema type: unspecified Qualified Code(s): J43.9 - Emphysema, uns pecified (3) Atrial fibrillation Current Visit: Yes Status: Acute Assessment and plan: Rate and rhythm stable. Continue eliquis Qualifiers: Atrial fibrillation type: unspecified Qualified Code(s): I48.91 - Unspecified atrial fibrillation (4) CAD (coronary artery disease) Current Visit: Yes Status: Acute Assessment and plan: stable. Denies chest pain. Continue current medication. Qualifiers: Coronary Disease-Associated Artery/Lesion type: unspecified vessel or lesion type Associated angina: angina presence unspecified Qualified Code(s): I25.10 - Atherosclerotic heart disease of [place] coronary artery without angina pectoris (5) HTN (hypertension) Current Visit: Yes Status: Acute Assessment and plan: stable. continue current meds. monitor BP. Qualifiers: Hypertension type: unspecified Qualified Code(s): I10 - Essential (primary) hypertension - Time Spent With Patient less than 15 minutes - Subjective Interval history: Participating well with therapy. Able to propel self in wheelchair. Transfers with contact guard assist. Ambulating hundred feet with mallorie Walker. Minimal assist with upper extremity dressing in contact card assist with lower extremity dressing. no new neurological deficits. Denies fever, chills, nausea vomiting or diarrhea. Denies shortness of breath or chest pain. maintaining appetite and hydration. - Constitutional Vitals: Temp Pulse Resp BP Pulse Ox 97.8 F 74 16 106/54 93 09/05/18 06:42 09/05/18 06:42 09/05/18 06:43 09/05/18 06:42 09/05/18 06:43 General appearance: Present: A&O X 3, pleasant, no acute distress, answers questions appropriately - Head Head exam: Present: atraumatic, normocephalic - Eye Eye exam: Present: PERRL, conjuntiva pink, sclera anicteric Pupils: Present: PERRL - Neck Neck exam general surgery: Present: supple, trachea midline. Absent: lymphadenopathy - Respiratory Respiratory exam: Present: CTAB. Absent: accessory muscle use, rales, rhonchi, wheezes - Cardiovascular Cardiovascular exam: Present: irregular rhythm, +S1, +S2. Absent: diastolic murmur, gallop, rubs, systolic murmur - GI/Abdominal GI/Abdominal exam: Present: normal bowel sounds, soft, no peritoneal signs. Absent: distended, tenderness - Extremities Exam Extremities exam: Present: warm, radial pulses palpable and symmetrical. Absent: calf tenderness, cyanotic, pedal edema Additional comments: Slight weakness to right upper extremity, strength 4\5 - Neurological Exam Neurological exam: Present: CN II-XII intact, oriented X3, no focal deficits. Absent: pronater drift, facial droop, speech deficit - Skin Skin exam: Present: dry, intact Internal Medicine: Result - Labs CBC & Chem 7: 09/04/18 06:27 09/04/18 06:27 Consult Discharge Plan - Plan Referrals: Maulik Gregory MD [Primary Care Provider] -
[2018-09-05] MEDS: Melatonin 3 MG TABLET PO PRN (21:32)
[2018-09-06] MEDS: Albuterol 2.5 MG/3 ML NEBULIZER IH SCH ×2 (07:00→18:55)
[2018-09-06] MEDS: Famotidine 20 MG TABLET PO SCH (08:25)
[2018-09-06] MEDS: Loratadine/Pseudophed (12 HR) 1 EACH TABLET PO SCH (08:25)
[2018-09-06] MEDS: BISOPROLOL PO SCH (08:25)
[2018-09-06] MEDS: *HR* Ticagrelor 90 MG TABLET PO SCH ×2 (08:25→19:51)
[2018-09-06] MEDS: Diltiazem CD (24hr) 180 MG CAPSULE PO SCH (08:25)
[2018-09-06] MEDS: Apixaban 5 MG TABLET PO SCH ×2 (08:25→19:51)
[2018-09-06] MEDS: hydroCHLOROthiazide 25 MG TABLET PO SCH (08:25)
[2018-09-06] MEDS: PRAVASTATIN 40MG PO SCH (08:25)
--- NOTE | 2018-09-06 09:28 | Internal Med Progress Note ---
Date of Encounter: 09/06/18 Time of Encounter: 09:50 - Assessment and plan (1) CVA (cerebral vascular accident) Current Visit: Yes Status: Acute Assessment and plan: No acute issues. Patient's neurological exam remains unchanged since admission. Patient has been dissipating and physical therapy and feels that he has shown some improvement in strength to his right upper extremity. Denies any current issues. We will continue with current medications and planning care. Qualifiers: CVA mechanism: unspecified Qualified Code(s): I63.9 - Cerebral infarction, unspecified (2) COPD (chronic obstructive pulmonary disease) Current Visit: Yes Status: Acute Assessment and plan: No acute issues. Patient's lungs remain clear with diminished breath sounds to the lower choi. No productive cough. Patient denies any dyspnea. We will continue with current medications and therapy Qualifiers: Emphysema type: unspecified Qualified Code(s): J43.9 - Emphysema, unspecified (3) Atrial fibrillation Current Visit: Yes Status: Acute Assessment and plan: No acute issues. Patient's heart rate remains irregular but he has a controlled ventricular rate less than 100. Patient will continue with current medications to include Eliquis. Qualifiers: Atrial fibrillation type: unspecified Qualified Code(s): I48.91 - Unspecified atrial fibrillation (4) CAD (coronary artery disease) Current Visit: Yes Status: Acute Assessment and plan: No acute issues. Patient denies any chest palpitations or discomforts. We will continue with his current medications. Tolerating therapy well. Qualifiers: Coronary Disease-Associated Artery/Lesion type: unspecified vessel or lesion type Associated angina: angina presence unspecified Qualified Code(s): I25.10 - Atherosclerotic heart disease of [place] coronary artery without angina pectoris (5) HTN (hypertension) Current Visit: Yes Status: Acute Assessment and plan: Patient systolic blood pressure is slightly elevated in the 150s but he has maintained the goal systolic pressure less than 160. We will continue with current medications. Qualifiers: Hypertension type: unspecified Qualified Code(s): I10 - Essential (primary) hypertension - Time Spent With Patient less than 15 minutes - Subjective Interval history: Patient appears relaxed currently denies any discomforts or shortness of breath. Patient states that he feels his strength is coming back to his right arm, which continues to remains proximally weakened. States that therapy is progressing well. - Constitutional Vitals: Temp Pulse Resp BP Pulse Ox 97.5 F L 59 16 129/67 99 09/06/18 07:54 09/06/18 07:54 09/06/18 07:54 09/06/18 07:54 09/06/18 07:54 General appearance: Present: A&O X 3, pleasant, no acute distress, answers questions appropriately - Head Head exam: Present: atraumatic, normocephalic - Eye Eye exam: Present: PERRL, conjuntiva pink, sclera anicteric Pupils: Present: PERRL - Neck Neck exam general surgery: Present: supple, trachea midline. Absent: lymphadenopathy - Respiratory Respiratory exam: Present: CTAB. Absent: accessory muscle use, rales, rhonchi, wheezes - Cardiovascular Cardiovascular exam: Present: RRR, +S1, +S2. Absent: diastolic murmur, gallop, rubs, systolic murmur - GI/Abdominal GI/Abdominal exam: Present: normal bowel sounds, soft, no peritoneal signs. Absent: distended, tenderness - Extremities Exam Extremities exam: Present: warm, radial pulses palpable and symmetrical. Absent: calf tenderness, cyanotic, pedal edema - Neurological Exam Neurological exam: Present: CN II-XII intact, oriented X3. Absent: pronater drift, facial droop, speech deficit Additional comments: Patient continues to have proximal weakness to the RUE with MS 3/5 and distal 5/5. LUE and BLE 5/5 - Skin Skin exam: Present: dry, intact Internal Medicine: Result - Labs CBC & Chem 7: 09/04/18 06:27 09/04/18 06:27 Consult Discharge Plan - Plan Referrals: Maulik Gregory MD [Primary Care Provider] -
--- NOTE | 2018-09-06 14:57 | Rehab Psychology Progress Note ---
Date of Encounter: 09/06/18 Time of Encounter: 11:00 Subjective - Patient Report Patient Report: Emotionally labile during session. Stated mood was "alright" with both depression and anxiety. - Symptoms Symptoms: Teared up and some sobs Objective - WHODAS Functional Impairment Concentration, Problem-solving, Communication: Mild Social Functioning: Mild - Comments Functional Status Comments: Expressed desire to get home and back into hobbies. expressed concerns with him falling at home and needs a "little bit" of training. Additionally, discussed home visit. - Mental Status Mental Status Changes: Memory and attention appear intact. Word finding noted in conversation. OX3. Assessment and Plan - Diagnosis (1) Adjustment disorder with mixed anxiety and depressed mood - Response to Treatment Response to Treatment: Improved - Prognosis Prognosis: Good - Treatment Plan Treatment Plan Recommendations: Continue Current Plan/Goals Changes in Treatment Plan Goals: Discussed medication for lability with MD. Concerns with hiw he will interact with family and others in social situations. Treatment Frequency: weekly Next Session Date: 09/13/18 Procedures - Intervention Interventions: Cognitive/Behavioral Therapy - Modality Modality: Psychotherapy 30 minutes - Participants Therapy Participant: Patient, Family - Session Time Session Start Time: 11:00 Session Stop Time: 11:30
[2018-09-07 05:33] LABS: BUN/Creatinine Ratio 12 (6-26); Blood Urea Nitrogen 13 mg/dL (8-23); Calcium 8.6 mg/dL (8.6-10.3); Carbon Dioxide 34 mEq/L (23-29); Chloride 103 mEq/L (98-107); Glucose 100 mg/dL (70-105); Magnesium 1.9 mg/dL (1.6-2.6); Osmolality,Calculated 288 (280-300); Potassium 3.8 mEq/L (3.5-5.1); Sodium 139 mEq/L (136-145); eGFR For African Americans > 60 (> 60); eGFR For Non-African Americans > 60 (> 60)
[2018-09-07] MEDS: Albuterol 2.5 MG/3 ML NEBULIZER IH SCH ×2 (07:36→18:17)
[2018-09-07] MEDS: Loratadine/Pseudophed (12 HR) 1 EACH TABLET PO SCH (08:10)
[2018-09-07] MEDS: hydroCHLOROthiazide 25 MG TABLET PO SCH (08:10)
[2018-09-07] MEDS: Famotidine 20 MG TABLET PO SCH (08:10)
[2018-09-07] MEDS: *HR* Ticagrelor 90 MG TABLET PO SCH ×2 (08:11→20:53)
[2018-09-07] MEDS: Diltiazem CD (24hr) 180 MG CAPSULE PO SCH (08:11)
[2018-09-07] MEDS: BISOPROLOL PO SCH (08:11)
[2018-09-07] MEDS: Apixaban 5 MG TABLET PO SCH ×2 (08:11→20:53)
[2018-09-07] MEDS: PRAVASTATIN 40MG PO SCH (08:11)
[2018-09-07] MEDS ORDERED: cloNIDine HCl 0.1 MG TABLET PO PRN (08:14)
--- NOTE | 2018-09-07 09:59 | Internal Med Progress Note ---
Date of Encounter: 09/07/18 Time of Encounter: 09:57 - Assessment and plan (1) CVA (cerebral vascular accident) Current Visit: Yes Status: Acute Assessment and plan: No acute issues. Patient's neurological exam remains unchanged since admission. Patient has been participating with therapy and feels that he has shown some improvement in strength to his right upper extremity. Patient was educated on the need to flex his right arm to protect his arm as he has passively allow the arm to dangle at the side. Patient observed ambulating with walker and noted to have a slight unsteady gait and remains a fall risk. Denies any current issues. We will continue with current medications and plan of care Qualifiers: CVA mechanism: unspecified Qualified Code(s): I63.9 - Cerebral infarction, unspecified (2) COPD (chronic obstructive pulmonary disease) Current Visit: Yes Status: Acute Assessment and plan: No acute issues. Patient's lungs remain clear with diminished breath sounds to the lower choi. No productive cough. Patient denies any dyspnea. We will continue with current medications and therapy Qualifiers: Emphysema type: unspecified Qualified Code(s): J43.9 - Emphysema, unspecified (3) Atrial fibrillation Current Visit: Yes Status: Acute Assessment and plan: No acute issues. Patient's heart rate remains irregular but he has a controlled ventricular rate less than 100. Patient will continue with current medications to include Eliquis. Qualifiers: Atrial fibrillation type: unspecified Qualified Code(s): I48.91 - Unspecified atrial fibrillation (4) CAD (coronary artery disease) Current Visit: Yes Status: Acute Assessment and plan: No acute issues. Patient denies any chest palpitations or discomforts. We will continue with his current medications. Tolerating therapy well. Qualifiers: Coronary Disease-Associated Artery/Lesion type: unspecified vessel or lesion type Associated angina: angina presence unspecified Qualified Code(s): I25.10 - Atherosclerotic heart disease of [place] coronary artery without angina pectoris (5) HTN (hypertension) Current Visit: Yes Status: Acute Assessment and plan: Patient systolic blood pressure is slightly elevated in the 150s but he has maintained the goal systolic pressure less than 160. Patient noted this morning to have a systolic blood pressure 182. We will continue with when necessary clonidine. We will continue with current medications. Qualifiers: Hypertension type: unspecified Qualified Code(s): I10 - Essential (primary) hypertension - Time Spent With Patient less than 15 minutes - Subjective Interval history: Patient appears relaxed currently denies any discomforts or shortness of breath. Patient states that he feels his strength is coming back to his right arm, whic h continues to remains proximally weakened. States that therapy is progressing well. Therapy states that patient needs to work on protecting his right arm which he has been noted to allow pain passively to his side. This was discussed with him and patient states understanding - Constitutional Vitals: Temp Pulse Resp BP Pulse Ox 98.7 F 78 19 116/64 96 09/07/18 06:40 09/07/18 06:40 09/07/18 07:37 09/07/18 06:40 09/07/18 07:37 General appearance: Present: A&O X 3, pleasant, no acute distress, answers ques tions appropriately - Head Head exam: Present: atraumatic, normocephalic - Eye Eye exam: Present: PERRL, conjuntiva pink, sclera anicteric Pupils: Present: PERRL - Neck Neck exam general surgery: Present: supple, trachea midline. Absent: lymphadenopathy - Respiratory Respiratory exam: Present: decreased breath sounds, CTAB. Absent: accessory muscle use, rales, rhonchi, wheezes - Cardiovascular Cardiovascular exam: Present: RRR, +S1, +S2. Absent: diastolic murmur, gallop, rubs, systolic murmur - GI/Abdominal GI/Abdominal exam: Present: normal bowel sounds, soft, no peritoneal signs. Absent: distended, tenderness - Extremities Exam Extremities exam: Present: warm, radial pulses palpable and symmetrical. Absent: calf tenderness, cyanotic, pedal edema - Neurological Exam Neurological exam: Present: CN II-XII intact, oriented X3. Absent: pronater dri ft, facial droop, speech deficit Additional comments: Patient continues to have right arm weakness with his proximal muscle strength at 3/5 and distally patient shows 5/5 muscle strength. Left upper extremity and bilateral lower extremities continue with 5/5 muscle strength, although patient noted to show slight generalized weakness during ambulation with walker and rem ains a fall risk - Skin Skin exam: Present: dry, intact Internal Medicine: Result - Labs CBC & Chem 7: 09/04/18 06:27 09/07/18 05:05 Labs: BMP 09/07/18 05:05 Sodium 139 Potassium 3.8 Chloride 103 Carbon Dioxide 34 H BUN 13 Creatinine 1.06 Glucose 100 Calcium 8.6 Consult Discharge Plan - Plan Referrals: Maulik Gregory MD [Primary Care Provider] -
[2018-09-08] MEDS: Albuterol 2.5 MG/3 ML NEBULIZER IH SCH ×2 (07:02→17:59)
[2018-09-08] MEDS: Famotidine 20 MG TABLET PO SCH (08:23)
[2018-09-08] MEDS: Apixaban 5 MG TABLET PO SCH ×2 (08:23→21:28)
[2018-09-08] MEDS: Loratadine/Pseudophed (12 HR) 1 EACH TABLET PO SCH (08:23)
[2018-09-08] MEDS: *HR* Ticagrelor 90 MG TABLET PO SCH ×2 (08:23→21:28)
[2018-09-08] MEDS: BISOPROLOL PO SCH (08:23)
[2018-09-08] MEDS: PRAVASTATIN 40MG PO SCH (08:23)
[2018-09-08] MEDS: Diltiazem CD (24hr) 180 MG CAPSULE PO SCH (08:23)
[2018-09-08] MEDS: hydroCHLOROthiazide 25 MG TABLET PO SCH (08:23)
--- NOTE | 2018-09-08 10:22 | Internal Med Progress Note ---
Date of Encounter: 09/08/18 Time of Encounter: 10:20 - Assessment and plan (1) CVA (cerebral vascular accident) Current Visit: Yes Status: Acute Assessment and plan: Continue PT, OT and ST. Will follow progress. No new neurological deficits. Assist with ADLs as necessary. Follow up with neurologist as scheduled. Qualifiers: CVA mechanism: unspecified Qualified Code(s): I63.9 - Cerebral infarction, unspecified (2) COPD (chronic obstructive pulmonary disease) Current Visit: Yes Status: Acute Assessment and plan: Stable. Monitor. Qualifiers: Emphysema type: unspecified Qualified Code(s): J43.9 - Emphysema, uns pecified (3) Atrial fibrillation Current Visit: Yes Status: Acute Assessment and plan: Rate and rhythm stable. Continue eliquis Qualifiers: Atrial fibrillation type: unspecified Qualified Code(s): I48.91 - Unspecified atrial fibrillation (4) CAD (coronary artery disease) Current Visit: Yes Status: Acute Assessment and plan: stable. Denies chest pain. Continue current medication. Qualifiers: Coronary Disease-Associated Artery/Lesion type: unspecified vessel or lesion type Associated angina: angina presence unspecified Qualified Code(s): I25.10 - Atherosclerotic heart disease of [place] coronary artery without angina pectoris (5) HTN (hypertension) Current Visit: Yes Status: Acute Assessment and plan: stable. continue current meds. monitor BP. Qualifiers: Hypertension type: unspecified Qualified Code(s): I10 - Essential (primary) hypertension - Time Spent With Patient less than 15 minutes - Subjective Interval history: Participating well with therapy. Able to propel self in wheelchair. Transfers with contact guard assist. no new neurological deficits. Denies fever, chills, nausea vomiting or diarrhea. Denies shortness of breath or chest pain. maintaining appetite and hydration. - Constitutional Vitals: Temp Pulse Resp BP Pulse Ox 97.6 F 79 18 145/70 93 09/08/18 07:14 09/08/18 07:14 09/08/18 07:14 09/08/18 07:14 09/08/18 07:14 General appearance: Present: A&O X 3, pleasant, no acute distress, answers questions appropriately - Head Head exam: Present: atraumatic, normocephalic - Eye Eye exam: Present: PERRL, conjuntiva pink, sclera anicteric Pupils: Present: PERRL - Neck Neck exam general surgery: Present: supple, trachea midline. Absent: lymphadenopathy - Respiratory Respiratory exam: Present: CTAB. Absent: accessory muscle use, rales, rhonchi, wheezes - Cardiovascular Cardiovascular exam: Present: irregular rhythm, +S1, +S2. Absent: diastolic murmur, gallop, rubs, systolic murmur - GI/Abdominal GI/Abdominal exam: Present: normal bowel sounds, soft, no peritoneal signs. Absent: distended, tenderness - Extremities Exam Extremities exam: Present: warm, radial pulses palpable and symmetrical. Absent: calf tenderness, cyanotic, pedal edema Additional comments: right shoulder strength 3/5, right hand grasp 4/5 - Neurological Exam Neurological exam: Present: CN II-XII intact, oriented X3, no focal deficits. Absent: pronater drift, facial droop, speech deficit - Skin Skin exam: Present: dry, intact Internal Medicine: Result - Labs CBC & Chem 7: 09/04/18 06:27 09/07/18 05:05 Consult Discharge Plan - Plan Referrals: Maulik Gregory MD [Primary Care Provider] -
[2018-09-09] MEDS: hydroCHLOROthiazide 25 MG TABLET PO SCH (07:49)
[2018-09-09] MEDS: *HR* Ticagrelor 90 MG TABLET PO SCH ×2 (07:49→20:51)
[2018-09-09] MEDS: Loratadine/Pseudophed (12 HR) 1 EACH TABLET PO SCH (07:49)
[2018-09-09] MEDS: Famotidine 20 MG TABLET PO SCH (07:49)
[2018-09-09] MEDS: Albuterol 2.5 MG/3 ML NEBULIZER IH SCH ×2 (07:49→20:51)
[2018-09-09] MEDS: Diltiazem CD (24hr) 180 MG CAPSULE PO SCH (07:49)
[2018-09-09] MEDS: Apixaban 5 MG TABLET PO SCH ×2 (07:49→20:51)
[2018-09-09] MEDS: BISOPROLOL PO SCH (07:50)
[2018-09-09] MEDS: PRAVASTATIN 40MG PO SCH (07:50)
--- NOTE | 2018-09-09 08:09 | Internal Med Progress Note ---
Date of Encounter: 09/09/18 Time of Encounter: 08:07 - Assessment and plan (1) CVA (cerebral vascular accident) Current Visit: Yes Status: Acute Assessment and plan: stable at the present time improving strength in his leg has improved considerably .Getting PT no new change Qualifiers: CVA mechanism: unspecified Qualified Code(s): I63.9 - Cerebral infarction, unspecified (2) COPD (chronic obstructive pulmonary disease) Current Visit: Yes Status: Chronic Assessment and plan: stable at the present time base line now , no acute issue. Qualifiers: Emphysema type: unspecified Qualified Code(s): J43.9 - Emphysema, u nspecified (3) Atrial fibrillation Current Visit: Yes Status: Chronic Assessment and plan: stable rate no evidence of bleeding or any other issue Qualifiers: Atrial fibrillation type: unspecified Qualified Code(s): I48.91 - Unspecified atrial fibrillation (4) CAD (coronary artery disease) Current Visit: Yes Status: Chronic Assessment and plan: stable at the present time no chest pain getting his exercise and PT Qualifiers: Coronary Disease-Associated Artery/Lesion type: unspecified vessel or lesion type Associated angina: angina presence unspecified Qualified Code(s): I25.10 - Atherosclerotic heart disease of [place] coronary artery without angina pectoris (5) HTN (hypertension) Current Visit: Yes Status: Chronic Assessment and plan: on multiple meds s table no dizziness Qualifiers: Hypertension type: unspecified Qualified Code(s): I10 - Essential (primary) hypertension - Subjective Interval history: Cross coverage . No acute issues slept well last night Getting better , No chest pain SB , palpitation bleeding or any other issues - Constitutional Vitals: Temp Pulse Resp BP Pulse Ox 98.0 F 70 18 126/66 92 09/09/18 07:17 09/09/18 07:17 09/09/18 07:17 09/09/18 07:17 09/09/18 07:17 General appearance: Present: A&O X 3, pleasant, no acute distress, answers questions appropriately - Head Head exam: Present: atraumatic - Eye Eye exam: Present: EOMI, normal appearance, PERRL Pupils: Present: PERRL - Neck Neck exam general surgery: Present: full ROM, supple. Absent: tenderness, nuchal rigidity - Respiratory Respiratory exam: Present: CTAB. Absent: accessory muscle use, chest wall tenderness, prolonged expiratory phase, rales, respiratory distress, rhonchi, stridor, wheezes, tachypnea - Cardiovascular Cardiovascular exam: Present: irregular rhythm, +S1, +S2. Absent: JVD, tachycardia - GI/Abdominal GI/Abdominal exam: Present: normal bowel sounds, soft. Absent: guarding, hepatomegaly, rebound, rigid, splenomegaly, tenderness, no peritoneal signs - Extremities Exam Extremities exam: Absent: pedal edema, tenderness - Neurological Exam Neurological exam: Present: CN II-XII intact, oriented X3. Absent: facial droop, speech deficit Additional comments: right upper arm weakness more as compared to left side , left leg strenght weaker but much better Internal Medicine: Result - Labs CBC & Chem 7: 09/04/18 06:27 09/07/18 05:05 Consult Discharge Plan - Plan Referrals: Maulik Gregory MD [Primary Care Provider] -
[2018-09-10] MEDS: Albuterol 2.5 MG/3 ML NEBULIZER IH SCH ×2 (06:53→18:08)
--- NOTE | 2018-09-10 07:40 | Internal Med Progress Note ---
Date of Encounter: 09/10/18 Time of Encounter: 07:38 - Assessment and plan (1) CVA (cerebral vascular accident) Current Visit: Yes Status: Acute Assessment and plan: Stable , no new issues at the present time he is getting his rehab and improving slowly Qualifiers: CVA mechanism: unspecified Qualified Code(s): I63.9 - Cerebral infarction, unspecified (2) COPD (chronic obstructive pulmonary disease) Current Visit: Yes Status: Chronic Assessment and plan: stable at the present time base line now , no acute issue. Qualifiers: Emphysema type: unspecified Qualified Code(s): J43.9 - Emphysema, unspecified (3) Atrial fibrillation Current Visit: Yes Status: Chronic Assessment and plan: stable rate no evidence of bleeding or any other issue Qualifiers: Atrial fibrillation type: unspecified Qualified Code(s): I48.91 - Unspecified atrial fibrillation (4) CAD (coronary artery disease) Current Visit: Yes Status: Chronic Qualifiers: Coronary Disease-Associated Artery/Lesion type: unspecified vessel or lesion type Associated angina: angina presence unspecified Qualified Code(s): I25.10 - Atherosclerotic heart disease of [place] coronary artery without angina pectoris (5) HTN (hypertension) Current Visit: Yes Status: Chronic Assessment and plan: on multiple meds s table no dizziness tolerating meds as given Qualifiers: Hypertension type: unspecified Qualified Code(s): I10 - Essential (primary) hypertension - Subjective Interval history: Cross coverage . No acute issues slept well last night Getting better , No chest pain SB , palpitation bleeding or any other issues Sitting in his bed today and seems to be getting better by the day - Constitutional Vitals: Temp Pulse Resp BP Pulse Ox 97.8 F 68 18 125/64 96 09/10/18 07:17 09/10/18 07:17 09/10/18 07:17 09/10/18 07:17 09/10/18 07:17 General appearance: Present: A&O X 3, pleasant, no acute distress, answers questions appropriately - Head Head exam: Present: atraumatic - Eye Eye exam: Present: EOMI, PERRL Pupils: Present: PERRL - Neck Neck exam general surgery: Present: full ROM. Absent: nuchal rigidity - Respiratory Respiratory exam: Present: CTAB. Absent: chest wall tenderness, decreased breath sounds, respiratory distress, rhonchi, stridor, wheezes - Cardiovascular Cardiovascular exam: Present: irregular rhythm, +S2, +S3. Absent: JVD Additional comments: rate stable - GI/Abdominal GI/Abdominal exam: Present: normal bowel sounds, soft. Absent: distended, firm, guarding, rigid, splenomegaly, tenderness - Extremities Exam Extremities exam: Absent: pedal edema - Neurological Exam Neurological exam: Present: CN II-XII intact. Absent: facial droop, speech deficit Additional comments: right upper Arm weaker then left no new change strength is getting better Internal Medicine: Result - Labs CBC & Chem 7: 09/04/18 06:27 09/07/18 05:05 Consult Discharge Plan - Plan Referrals: Maulik Gregory MD [Primary Care Provider] -
[2018-09-10] MEDS: *HR* Ticagrelor 90 MG TABLET PO SCH ×2 (08:40→20:12)
[2018-09-10] MEDS: Loratadine/Pseudophed (12 HR) 1 EACH TABLET PO SCH (08:40)
[2018-09-10] MEDS: Diltiazem CD (24hr) 180 MG CAPSULE PO SCH (08:41)
[2018-09-10] MEDS: PRAVASTATIN 40MG PO SCH (08:41)
[2018-09-10] MEDS: BISOPROLOL PO SCH (08:41)
[2018-09-10] MEDS: Apixaban 5 MG TABLET PO SCH ×2 (08:41→20:12)
[2018-09-10] MEDS: Famotidine 20 MG TABLET PO SCH (08:41)
[2018-09-10] MEDS: hydroCHLOROthiazide 25 MG TABLET PO SCH (08:41)
[2018-09-11] MEDS: Albuterol 2.5 MG/3 ML NEBULIZER IH SCH ×2 (06:31→19:38)
[2018-09-11] MEDS: Famotidine 20 MG TABLET PO SCH (07:50)
[2018-09-11] MEDS: hydroCHLOROthiazide 25 MG TABLET PO SCH (07:50)
[2018-09-11] MEDS: Loratadine/Pseudophed (12 HR) 1 EACH TABLET PO SCH (07:50)
[2018-09-11] MEDS: BISOPROLOL PO SCH (07:50)
[2018-09-11] MEDS: PRAVASTATIN 40MG PO SCH (07:50)
[2018-09-11] MEDS: Diltiazem CD (24hr) 180 MG CAPSULE PO SCH (07:50)
[2018-09-11] MEDS: Apixaban 5 MG TABLET PO SCH ×2 (07:50→20:55)
[2018-09-11] MEDS: *HR* Ticagrelor 90 MG TABLET PO SCH ×2 (07:50→20:55)
--- NOTE | 2018-09-11 11:11 | Internal Med Progress Note ---
Date of Encounter: 09/11/18 Time of Encounter: 11:09 - Assessment and plan (1) CVA (cerebral vascular accident) Current Visit: Yes Status: Acute Assessment and plan: Continue PT, OT and ST. Will follow progress. No new neurological deficits. Assist with ADLs as necessary. Follow up with neurologist as scheduled. Qualifiers: CVA mechanism: unspecified Qualified Code(s): I63.9 - Cerebral infarction, unspecified (2) COPD (chronic obstructive pulmonary disease) Current Visit: Yes Status: Chronic Assessment and plan: Stable. Monitor. Qualifiers: Emphysema type: unspecified Qualified Code(s): J43.9 - Emphysema, u nspecified (3) Atrial fibrillation Current Visit: Yes Status: Chronic Assessment and plan: Rate and rhythm stable. Continue eliquis Qualifiers: Atrial fibrillation type: unspecified Qualified Code(s): I48.91 - Unspecified atrial fibrillation (4) CAD (coronary artery disease) Current Visit: Yes Status: Chronic Assessment and plan: stable. Denies chest pain. Continue current medication. Qualifiers: Coronary Disease-Associated Artery/Lesion type: unspecified vessel or lesion type Associated angina: angina presence unspecified Qualified Code(s): I25.10 - Atherosclerotic heart disease of [place] coronary artery without angina pectoris (5) HTN (hypertension) Current Visit: Yes Status: Chronic Assessment and plan: stable. continue current meds. monitor BP. Qualifiers: Hypertension type: unspecified Qualified Code(s): I10 - Essential (primary) hypertension - Time Spent With Patient less than 15 minutes - Subjective Interval history: Participating well with therapy. Able to propel self in wheelchair. ambulating with cane with therapy. no new neurological deficits. Denies fever, chills, nausea vomiting or diarrhea. Denies shortness of breath or chest pain. maintaining appetite and hydration. - Constitutional Vitals: Temp Pulse Resp BP Pulse Ox 98.2 F 65 16 121/65 94 09/11/18 06:00 09/11/18 06:00 09/11/18 06:31 09/11/18 06:00 09/11/18 06:00 General appearance: Present: A&O X 3, pleasant, no acute distress, answers questions appropriately - Head Head exam: Present: atraumatic, normocephalic - Eye Eye exam: Present: PERRL, conjuntiva pink, sclera anicteric Pupils: Present: PERRL - Neck Neck exam general surgery: Present: supple, trachea midline. Absent: lymphadenopathy - Respiratory Respiratory exam: Present: CTAB. Absent: accessory muscle use, rales, rhonchi, wheezes - Cardiovascular Cardiovascular exam: Present: irregular rhythm, +S1, +S2. Absent: diastolic murmur, gallop, rubs, systolic murmur - GI/Abdominal GI/Abdominal exam: Present: normal bowel sounds, soft, no peritoneal signs. Absent: distended, tenderness - Extremities Exam Extremities exam: Present: warm, radial pulses palpable and symmetrical. Ab sent: calf tenderness, cyanotic, pedal edema Additional comments: right shoulder weakness. - Neurological Exam Neurological exam: Present: CN II-XII intact, oriented X3, no focal deficits. Absent: pronater drift, facial droop, speech deficit - Skin Skin exam: Present: dry, intact Internal Medicine: Result - Labs CBC & Chem 7: 09/04/18 06:27 09/07/18 05:05 Consult Discharge Plan - Plan Referrals: Maulik Gregory MD [Primary Care Provider] -
[2018-09-12] MEDS: Albuterol 2.5 MG/3 ML NEBULIZER IH SCH ×2 (06:49→19:25)
[2018-09-12] MEDS: Famotidine 20 MG TABLET PO SCH (08:19)
[2018-09-12] MEDS: *HR* Ticagrelor 90 MG TABLET PO SCH ×2 (08:19→20:13)
[2018-09-12] MEDS: BISOPROLOL PO SCH (08:19)
[2018-09-12] MEDS: Diltiazem CD (24hr) 180 MG CAPSULE PO SCH (08:19)
[2018-09-12] MEDS: Loratadine/Pseudophed (12 HR) 1 EACH TABLET PO SCH (08:19)
[2018-09-12] MEDS: hydroCHLOROthiazide 25 MG TABLET PO SCH (08:19)
[2018-09-12] MEDS: Apixaban 5 MG TABLET PO SCH ×2 (08:19→20:13)
[2018-09-12] MEDS: PRAVASTATIN 40MG PO SCH (08:20)
--- NOTE | 2018-09-12 11:13 | Internal Med Progress Note ---
Date of Encounter: 09/12/18 Time of Encounter: 11:11 - Assessment and plan (1) CVA (cerebral vascular accident) Current Visit: Yes Status: Acute Assessment and plan: Continue PT, OT and ST. Will follow progress. No new neurological deficits. Assist with ADLs as necessary. Follow up with neurologist as scheduled. Qualifiers: CVA mechanism: unspecified Qualified Code(s): I63.9 - Cerebral infarction, unspecified (2) COPD (chronic obstructive pulmonary disease) Current Visit: Yes Status: Chronic Assessment and plan: Stable. Monitor. Qualifiers: Emphysema type: unspecified Qualified Code(s): J43.9 - Emphysema, u nspecified (3) Atrial fibrillation Current Visit: Yes Status: Chronic Assessment and plan: Rate and rhythm stable. Continue eliquis Qualifiers: Atrial fibrillation type: unspecified Qualified Code(s): I48.91 - Unspecified atrial fibrillation (4) CAD (coronary artery disease) Current Visit: Yes Status: Chronic Assessment and plan: stable. Denies chest pain. Continue current medication. Qualifiers: Coronary Disease-Associated Artery/Lesion type: unspecified vessel or lesion type Associated angina: angina presence unspecified Qualified Code(s): I25.10 - Atherosclerotic heart disease of [place] coronary artery without angina pectoris (5) HTN (hypertension) Current Visit: Yes Status: Chronic Assessment and plan: stable. continue current meds. monitor BP. Qualifiers: Hypertension type: unspecified Qualified Code(s): I10 - Essential (primary) hypertension - Time Spent With Patient less than 15 minutes - Subjective Interval history: Participating well with therapy. Able to propel self in wheelchair. ambulating with cane with therapy. no new neurological deficits. Denies fever, chills, nausea vomiting or diarrhea. Denies shortness of breath or chest pain. maintaining appetite and hydration. had home safety eval yesterday. - Constitutional Vitals: Temp Pulse Resp BP Pulse Ox 97.5 F L 72 17 135/67 95 09/12/18 11:07 09/12/18 11:07 09/12/18 11:07 09/12/18 11:07 09/12/18 11:07 General appearance: Present: A&O X 3, pleasant, no acute distress, answers questions appropriately - Head Head exam: Present: atraumatic, normocephalic - Eye Eye exam: Present: PERRL, conjuntiva pink, sclera anicteric Pupils: Present: PERRL - Neck Neck exam general surgery: Present: supple, trachea midline. Absent: lymphadenopathy - Respiratory Respiratory exam: Present: CTAB. Absent: accessory muscle use, rales, rhonchi, wheezes - Cardiovascular Cardiovascular exam: Present: irregular rhythm, +S1, +S2. Absent: diastolic murmur, gallop, rubs, systolic murmur - GI/Abdominal GI/Abdominal exam: Present: normal bowel sounds, soft, no peritoneal signs. Absent: distended, tenderness - Extremities Exam Extremities exam: Present: warm, radial pulses palpable and symmetrical. Absent: calf tenderness, cyanotic, pedal edema Additional comments: right shoulder weakness. - Neurological Exam Neurological exam: Present: CN II-XII intact, oriented X3, no focal deficits. Absent: pronater drift, facial droop, speech deficit - Skin Skin exam: Present: dry, intact Internal Medicine: Result - Labs CBC & Chem 7: 09/04/18 06:27 09/07/18 05:05 Consult Discharge Plan - Plan Referrals: Maulik Gregory MD [Primary Care Provider] -
[2018-09-13] MEDS: Albuterol 2.5 MG/3 ML NEBULIZER IH SCH ×2 (07:36→18:07)
[2018-09-13] MEDS: BISOPROLOL PO SCH (08:00)
[2018-09-13] MEDS: Apixaban 5 MG TABLET PO SCH ×2 (08:00→19:46)
[2018-09-13] MEDS: hydroCHLOROthiazide 25 MG TABLET PO SCH (08:00)
[2018-09-13] MEDS: Diltiazem CD (24hr) 180 MG CAPSULE PO SCH (08:00)
[2018-09-13] MEDS: Loratadine/Pseudophed (12 HR) 1 EACH TABLET PO SCH (08:00)
[2018-09-13] MEDS: Famotidine 20 MG TABLET PO SCH (08:00)
[2018-09-13] MEDS: *HR* Ticagrelor 90 MG TABLET PO SCH ×2 (08:00→19:46)
[2018-09-13] MEDS: PRAVASTATIN 40MG PO SCH (08:01)
--- NOTE | 2018-09-13 10:22 | Rehab Psychology Progress Note ---
Date of Encounter: 09/13/18 Time of Encounter: 09:30 Subjective - Patient Report Patient Report: Excited to go home [place] . Home visit went well and has been trained in assisting him. He acknowledged need to go "slow and easy" at home. Stated he is glad to be on medication for emotional lability (Lexapro) feels it is helping control his emotions - especially crying. - Symptoms Symptoms: No lability noted today Objective - WHODAS Functional Impairment Concentration, Problem-solving, Communication: None Social Functioning: None - Comments Functional Status Comments: Going well. Mood and sleep are good. - Mental Status Mental Status Changes: OX3. No issues noted with word finding or general cognition today. Assessment and Plan - Diagnosis (1) Adjustment disorder with mixed anxiety and depressed mood - Response to Treatment Response to Treatment: Improved - Prognosis Prognosis: Excellent - Treatment Plan Changes in Treatment Plan Goals: Dc goals met. Procedures - Intervention Interventions: Cognitive/Behavioral Therapy - Modality Modality: Psychotherapy 30 minutes - Participants Therapy Participant: Patient - Session Time Session Start Time: :30 Session Stop Time: 10:00
--- NOTE | 2018-09-13 11:10 | Internal Med Progress Note ---
Date of Encounter: 09/13/18 Time of Encounter: 11:07 - Assessment and plan (1) CVA (cerebral vascular accident) Current Visit: Yes Status: Acute Assessment and plan: No acute issues. Patient's neurological exam has been improving in RUE strength since admission. Otherwise no changes noted to the neuro exam. Patient observed ambulating with walker and noted to have a slight unsteady gait and remains a fall risk. Denies any current issues. We will continue with current medications and plan of care Qualifiers: CVA mechanism: unspecified Qualified Code(s): I63.9 - Cerebral infarction, unspecified (2) COPD (chronic obstructive pulmonary disease) Current Visit: Yes Status: Chronic Assessment and plan: No acute issues. Patient's lungs remain clear with diminished breath sounds to the lower choi. No productive cough. Patient denies any dyspnea. We will continue with current medications and therapy Qualifiers: Emphysema type: unspecified Qualified Code(s): J43.9 - Emphysema, unspecified (3) Atrial fibrillation Current Visit: Yes Status: Chronic Assessment and plan: No acute issues. Patient's heart rate remains irregular but he has a controlled ventricular rate less than 100. Patient will continue with current medications to include Eliquis. Qualifiers: Atrial fibrillation type: unspecified Qualified Code(s): I48.91 - Unspecified atrial fibrillation (4) CAD (coronary artery disease) Current Visit: Yes Status: Chronic Assessment and plan: No acute issues. Patient denies any chest palpitations or discomforts. We will continue with his current medications. Tolerating therapy well. Qualifiers: Coronary Disease-Associated Artery/Lesion type: unspecified vessel or lesion type Associated angina: angina presence unspecified Qualified Code(s): I25.10 - Atherosclerotic heart disease of [place] coronary artery without angina pectoris (5) HTN (hypertension) Current Visit: Yes Status: Chronic Assessment and plan: Patient systolic blood pressure is slightly elevated in the 150s but he has maintained the goal systolic pressure less than 160. We will continue with when necessary clonidine. We will continue with current medications. Qualifiers: Hypertension type: unspecified Qualified Code(s): I10 - Essential (primary) hypertension - Time Spent With Patient less than 15 minutes - Subjective Interval history: Patient appears relaxed currently denies any discomforts or shortness of breath. Patient states that he feels his strength is coming back to his right arm, which continues to remains proximally weakened. States that therapy is progressing well. - Constitutional Vitals: Temp Pulse Resp BP Pulse Ox 97.9 F 62 16 113/63 93 09/13/18 08:23 09/13/18 08:23 09/13/18 08:23 09/13/18 08:23 09/13/18 08:23 General appearance: Present: A&O X 3, pleasant, no acute distress, answers questions appropriately - Head Head exam: Present: atraumatic, normocephalic - Eye Eye exam: Present: PERRL, conjuntiva pink, sclera anicteric Pupils: Present: PERRL - Neck Neck exam general surgery: Present: supple, trachea midline. Absent: lymphadenopathy - Respiratory Respiratory exam: Present: decreased breath sounds, CTAB. Absent: accessory muscle use, rales, rhonchi, wheezes - Cardiovascular Cardiovascular exam: Present: RRR, +S1, +S2. Absent: diastolic murmur, gallop, rubs, systolic murmur - GI/Abdominal GI/Abdominal exam: Present: normal bowel sounds, soft, no peritoneal signs. Ab sent: distended, tenderness - Extremities Exam Extremities exam: Present: warm, radial pulses palpable and symmetrical. Absent: calf tenderness, cyanotic, pedal edema - Neurological Exam Neurological exam: Present: CN II-XII intact, oriented X3. Absent: pronater drift, facial droop, speech deficit Additional comments: Patient continues with paresis to his right upper extremity approximately. Patient shows 3/5 muscle strength to this right upper extremity approximately, and shows 5/5 muscle strength distally with hand grasp and wrist. Right lower extremity +4/5 and left extremities are 5/5. - Skin Skin exam: Present: dry, intact Internal Medicine: Result - Labs CBC & Chem 7: 09/04/18 06:27 09/07/18 05:05 Consult Discharge Plan - Plan Referrals: Maulik Gregory MD [Primary Care Provider] -
[2018-09-13] MEDS ORDERED: tiZANidine 4 MG TABLET PO PRN (13:41)
[2018-09-14] MEDS: Albuterol 2.5 MG/3 ML NEBULIZER IH SCH ×2 (07:05→18:05)
[2018-09-14] MEDS: Loratadine/Pseudophed (12 HR) 1 EACH TABLET PO SCH (07:58)
[2018-09-14] MEDS: *HR* Ticagrelor 90 MG TABLET PO SCH ×3 (07:58→21:09)
[2018-09-14] MEDS: Famotidine 20 MG TABLET PO SCH (07:58)
[2018-09-14] MEDS: BISOPROLOL PO SCH (07:58)
[2018-09-14] MEDS: hydroCHLOROthiazide 25 MG TABLET PO SCH (07:58)
[2018-09-14] MEDS: PRAVASTATIN 40MG PO SCH (07:58)
[2018-09-14] MEDS: Apixaban 5 MG TABLET PO SCH ×2 (07:58→21:09)
[2018-09-14] MEDS: Diltiazem CD (24hr) 180 MG CAPSULE PO SCH (07:58)
--- NOTE | 2018-09-14 11:02 | Internal Med Progress Note ---
Date of Encounter: 09/14/18 Time of Encounter: 10:59 - Assessment and plan (1) CVA (cerebral vascular accident) Current Visit: Yes Status: Acute Assessment and plan: Continue PT, OT and ST. Will follow progress. No new neurological deficits. Assist with ADLs as necessary. Follow up with neurologist as scheduled. Qualifiers: CVA mechanism: unspecified Qualified Code(s): I63.9 - Cerebral infarction, unspecified (2) COPD (chronic obstructive pulmonary disease) Current Visit: Yes Status: Chronic Assessment and plan: Stable. Monitor. Qualifiers: Emphysema type: unspecified Qualified Code(s): J43.9 - Emphysema, u nspecified (3) Atrial fibrillation Current Visit: Yes Status: Chronic Assessment and plan: Rate and rhythm stable. Continue eliquis Qualifiers: Atrial fibrillation type: unspecified Qualified Code(s): I48.91 - Unspecified atrial fibrillation (4) CAD (coronary artery disease) Current Visit: Yes Status: Chronic Assessment and plan: stable. Denies chest pain. Continue current medication. Qualifiers: Coronary Disease-Associated Artery/Lesion type: unspecified vessel or lesion type Associated angina: angina presence unspecified Qualified Code(s): I25.10 - Atherosclerotic heart disease of [place] coronary artery without angina pectoris (5) HTN (hypertension) Current Visit: Yes Status: Chronic Assessment and plan: stable. continue current meds. monitor BP. Qualifiers: Hypertension type: unspecified Qualified Code(s): I10 - Essential (primary) hypertension - Subjective Interval history: Participating well with therapy. Able to propel self in wheelchair. ambulating with cane with therapy. no new neurological deficits. Denies fever, chills, nausea vomiting or diarrhea. Denies shortness of breath or chest pain. maintaining appetite and hydration. participating in education for scheduled discharge to home tomorrow. - Constitutional Vitals: Temp Pulse Resp BP Pulse Ox 97.2 F L 70 19 113/70 96 09/14/18 07:00 09/14/18 07:00 09/14/18 07:08 09/14/18 07:00 09/14/18 07:08 General appearance: Present: A&O X 3, pleasant, no acute distress, answers questions appropriately - Head Head exam: Present: atraumatic, normocephalic - Eye Eye exam: Present: PERRL, conjuntiva pink, sclera anicteric Pupils: Present: PERRL - Neck Neck exam general surgery: Present: supple, trachea midline. Absent: lymphadenopathy - Respiratory Respiratory exam: Present: CTAB. Absent: accessory muscle use, rales, rhonchi, wheezes - Cardiovascular Cardiovascular exam: Present: RRR, +S1, +S2. Absent: diastolic murmur, gallop, rubs, systolic murmur - GI/Abdominal GI/Abdominal exam: Present: normal bowel sounds, soft, no peritoneal signs. Absent: distended, tenderness - Extremities Exam Extremities exam: Present: warm, radial pulses palpable and symmetrical. Absent: calf tenderness, cyanotic, pedal edema - Neurological Exam Neurological exam: Present: CN II-XII intact, oriented X3, no focal deficits. Absent: pronater drift, facial droop, speech deficit - Skin Skin exam: Present: dry, intact Internal Medicine: Result - Labs CBC & Chem 7: 09/04/18 06:27 09/07/18 05:05 Consult Discharge Plan - Plan Referrals: Maulik Gregory MD [Primary Care Provider] -
[2018-09-15] MEDS: Albuterol 2.5 MG/3 ML NEBULIZER IH SCH (07:41)
--- NOTE | 2018-09-15 08:19 | Event Note ---
Date of Encounter: 09/15/18 Time of Encounter: 08:17 Mr. Thapa has been progressing well with his physical therapy and is being prepared for possible discharge today. Patient continues with right hemiparesis and continues with an unsteady gait which makes him a continued risk for fall and injury. Upon investigation of patient's home situation it was noted the patient will be primarily confined to one room in his home during his recovery. Due to patient's unsteady gait is recommended patient will have a bedside commode to allow him more independence with his ADLs. Patient is incapable of utilizing regular facility status home.
[2018-09-15] MEDS: *HR* Ticagrelor 90 MG TABLET PO SCH (08:29)
[2018-09-15] MEDS: Diltiazem CD (24hr) 180 MG CAPSULE PO SCH (08:29)
[2018-09-15] MEDS: Apixaban 5 MG TABLET PO SCH (08:29)
[2018-09-15] MEDS: Loratadine/Pseudophed (12 HR) 1 EACH TABLET PO SCH (08:29)
[2018-09-15] MEDS: Famotidine 20 MG TABLET PO SCH (08:29)
[2018-09-15] MEDS: hydroCHLOROthiazide 25 MG TABLET PO SCH (08:29)
[2018-09-15] MEDS: BISOPROLOL PO SCH (08:31)
[2018-09-15] MEDS: PRAVASTATIN 40MG PO SCH (08:31)
--- NOTE | 2018-09-15 10:07 | Discharge Summary ---
Date of Encounter: 09/15/18 Time of Encounter: 10:04 - Discharge Diagnosis (1) CVA (cerebral vascular accident) Priority: Primary Status: Acute Comments: Patient was admitted for an acute CVA resulting in right hemiparesis. He has progressed well during his stay at this facility but continues to have right- sided weakness with a unsteady gait and remains a risk for fall. Patient is able to transfer with assist, but currently uses a wheelchair for mobilization. Patient continues to have proximal weakness to the right upper extremity which is at a 3/5 muscle strength and his right lower extremity remains at a 4/5 muscle strength. Left extremities are 5/5 muscle strength. Patient is continue physical therapy through home health services and is to continue follow-up with this PCP and neurology. Will be discharged with a prescription for Brillinta. Qualifiers: CVA mechanism: unspecified Qualified Code(s): I63.9 - Cerebral infarction, unspecified (2) COPD (chronic obstructive pulmonary disease) Priority: Secondary Status: Chronic Comments: No acute issues during his stay at this facility. Patient is to continue his follow-up with his PCP after discharge. Patient will continue with current medications Qualifiers: Emphysema type: unspecified Qualified Code(s): J43.9 - Emphysema, unspecified (3) Atrial fibrillation Priority: Secondary Status: Chronic Comments: No acute issues during his stay at this facility. Patient's heart rate remains controlled less than 100. Patient is to continue on Eliquis and Brillinta after discharge and follow-up with PCP for management Qualifiers: Atrial fibrillation type: unspecified Qualified Code(s): I48.91 - Unspecified atrial fibrillation (4) CAD (coronary artery disease) Priority: Secondary Status: Chronic Comments: No acute issues during his admission. Patient is continue with current medications after discharge. Patient will continue follow-up with PCP Qualifiers: Coronary Disease-Associated Artery/Lesion type: unspecified vessel or lesion type Associated angina: angina presence unspecified Qualified Code(s): I25.10 - Atherosclerotic heart disease of [place] coronary artery without angina pectoris (5) HTN (hypertension) Priority: Secondary Status: Chronic Comments: No acute issues. Patient's blood pressures remained stable with systolic remaining less than 160. Continue with current medications after discharge and patient is to follow-up with PCP for further management Qualifiers: Hypertension type: unspecified Qualified Code(s): I10 - Essential (primary) hypertension Hospital course: Mr. Paige is a 72 year old male, who was transferred to this facility from an area hospital where he was treated for an acute left central gyrus infarct, which resulted in right hemiparesis. Patient shows proximal weakness to the right upper extremity which is 3/5 but his distal movement is at 4/5 with hand grasp. His right lower extremity shows 4+/5. Left extremities currently are 5/5. Patient also showed a 60% stenosis of the left carotid artery, which no surgical interventions were performed during his stay and will be followed medically as an outpatient. Patient did have some changes to his medications to include a switch from Plavix to Brilinta in response to his stenosis. Patient was originally on the Plavix due to his history of coronary artery disease type included coronary stents. Patient also with atrial fibrillation and remains on Eliquis. Patient also with a history of COPD, hypertension and idiopathic angioedema. Patient states that he occasionally has an allergic-type flareup in which she takes prednisone and Benadryl when necessary but states he has not had one in several weeks. Patient's hospital recovery has been uneventful during his stay here at the rehabilitation. Patient has shown a increase in strength to his right upper extremity and continues to progress with his mobilization. Patient remains a fall risk due to his unsteady gait as a result of his right hemiparesis. Patient denies any current discomforts or shortness of breath. Patient will continue his therapy through home health services. Patient is to continue with current medications at discharge. Patient will follow with his neurologist and PCP for further management Discharge discussed with: patient Time spent discussing smoking cessation with patient: 3 to 10 minutes - Time Spent with Patient Total time spent providing and/or coordinating discharge services: Time spent: Less than 30 minutes - Discharge Medications Prescriptions: No Action Ticagrelor [Brilinta] 90 mg PO BID Albuterol Neb [Proventil Neb] 2.5 mg IH QID Apixaban [Eliquis] 5 mg PO BID Beclomethasone Dip 40mcg REDIH [Qvar 40 mcg REDIHALER] 2 puff IH BID Bisoprolol Fumarate [Zebeta] 20 mg PO DAILY Loratadine/Pseudophed (12 HR) [Claritin D (12HR)] 1 each PO DAILY hydroCHLOROthiazide [Hydrochlorothiazide] 25 mg PO DAILY Famotidine [Pepcid] 20 mg PO DAILY Diltiazem CD (24hr) [Cardizem CD] 180 mg PO DAILY Pravastatin Sodium [Pravachol] 40 mg PO DAILY Home Medications: Albuterol Neb [Proventil Neb] 2.5 mg IH QID 08/23/18 [History] Apixaban [Eliquis] 5 mg PO BID 08/23/18 [History] Beclomethasone Dip 40mcg REDIH [Qvar 40 mcg REDIHALER] 2 puff IH BID 08/23/18 [History] Bisoprolol Fumarate [Zebeta] 20 mg PO DAILY 08/23/18 [History] Diltiazem CD (24hr) [Cardizem CD] 180 mg PO DAILY 08/23/18 [History] Famotidine [Pepcid] 20 mg PO DAILY 08/23/18 [History] Loratadine/Pseudophed (12 HR) [Claritin D (12HR)] 1 each PO DAILY 08/23/18 [History] Pravastatin Sodium [Pravachol] 40 mg PO DAILY 08/23/18 [History] Ticagrelor [Brilinta] 90 mg PO BID 08/23/18 [History] hydroCHLOROthiazide [Hydrochlorothiazide] 25 mg PO DAILY 08/23/18 [History] Allergies/Adverse Reactions: Allergy/AdvReac Type Severity Reaction Status Date / Time aspirin AdvReac See Verified 08/23/18 20:38 Comments atorvastatin [From Lipitor] AdvReac See Verified 08/23/18 20:38 Comments Iodinated Contrast- Oral and AdvReac Difficulty Verified 08/23/18 20:39 IV Dye Breathing peanut AdvReac Difficulty Verified 08/23/18 20:38 Breathing Penicillins [PCN] AdvReac See Verified 08/23/18 20:39 Comments Date of admission: 08/23/18 19:18 Primary care physician: Maulik Gregory MD Consults: 08/23/18 20:43 Consult to Occupational Therapy [CONS] Routine Comment: Evaluate, develop and implement POC Reason for Consult: Eval and Treat Does patient have active BEDREST order?: No Is patient medically & hemodynamically stable?: Yes Patient assessed for mobility or mobilized this visit?: No Consult to Physical Therapy [CONS] Routine Comment: Evaluate, develop and implement POC Reason for Consult: Eval and Treat Does patient have active BEDREST order?: No Is patient medically & hemodynamically stable?: Yes Patient assessed for mobility or mobilized this visit?: No Consult to Recreational Therapy [CONS] Routine Comment: Evaluate, develop and implement POC Consult to Sales And Service Consultant [CONS] Routine Reason for SW Consult: Discharge Planning Consult to Speech Therapy [CONS] Routine Comment: Evaluate, develop and implement POC Reason for Consult: speech impairment Call Completed: Yes 08/23/18 20:45 Consult to Psychology [CONS] Routine Consulting Provider: Neela Salinas Reason for Consult: Possible depression; adjustment disorder Call Completed: No 09/04/18 10:02 Consult to Physical Medicine/Rehab [CONS] Routine Reason for Consult: Please evaluate and manage therapies' guidelines and recommend pathway to reconditioning. Time Notified: 10:02 Call Completed: Yes Discharging clinician: Nawaf Mulligan - Constitutional Vitals: Temp Pulse Resp BP Pulse Ox 97.8 F 81 18 136/67 91 09/14/18 19:10 09/14/18 19:10 09/15/18 07:15 09/14/18 19:10 09/15/18 07:15 General appearance: Present: A&O X 3, pleasant, no acute distress, answers questions appropriately - Head Head exam: Present: atraumatic, normocephalic - Eye Eye exam: Present: PERRL, conjuntiva pink, sclera anicteric Pupils: Present: PERRL - Neck Neck exam general surgery: Present: supple, trachea midline. Absent: lymphadenopathy - Respiratory Respiratory exam: Present: decreased breath sounds, CTAB. Absent: accessory muscle use, rales, rhonchi, wheezes - Cardiovascular Cardiovascular exam: Present: RRR, +S1, +S2. Absent: diastolic murmur, gallop, rubs, systolic murmur - GI/Abdominal GI/Abdominal exam: Present: normal bowel sounds, soft, no peritoneal signs. Absent: distended, tenderness - Extremities Exam Extremities exam: Present: warm, radial pulses palpable and symmetrical. Abse nt: calf tenderness, cyanotic, pedal edema - Neurological Exam Neurological exam: Present: CN II-XII intact, oriented X3. Absent: pronater drift, facial droop, speech deficit Additional comments: Patient continues with right hemiparesis with his right upper extremity showing 3/5 muscle strength to both BF and TE, but has 4/5 MS to the distal hand/wrist. RLE with 4/5 MS. LE shows 5/5 MS - Skin Skin exam: Present: dry, intact - Patient Status Disposition: Home Health Service Condition: Good Functional capacity at discharge: wheelchair bound Overall status at discharge: patient is progressing back to baseline - Discharge Instructions Follow Up With: Maulik Gregory MD [Primary Care Provider] - - Diet and Activity Activity: as per physical therapy, increase activity as tolerated Diet: low fat, low cholesterol, low salt diet
[2018-09-15 10:51] VITALS: BP 131/99
--- NOTE | 2018-09-15 11:21 | Physician Discharge Referral ---
Home Health/Hosp Referral Info Transfer to: Home Health Provider in Charge Post Discharge: PCP - Diagnosis (1) CVA (cerebral vascular accident) Priority: Primary Status: Acute (2) COPD (chronic obstructive pulmonary disease) Priority: Secondary Status: Chronic (3) Atrial fibrillation Priority: Secondary Status: Chronic (4) CAD (coronary artery disease) Priority: Secondary Status: Chronic (5) HTN (hypertension) Priority: Secondary Status: Chronic - Respiratory Orders Smoking Cessation: Smoking cessation has been advised. For more information, call the [place] Tobacco Quit Line at 9-452-RQKT-NOW. - Diet/Nutrition Diet/Nutrition Orders: No Added Salt (MARTY), Cardiac - Activity Activity Orders: Chair, Walker - Services Needed Following services are medically necessary services: Home Health Aide, Physical Therapy, Occupational Therapy - Transfer Medications Prescriptions: Ticagrelor [Brilinta] 90 mg PO BID #60 tablet Home Medications: Albuterol Neb [Proventil Neb] 2.5 mg IH QID 08/23/18 [History] Apixaban [Eliquis] 5 mg PO BID 08/23/18 [History] Beclomethasone Dip 40mcg REDIH [Qvar 40 mcg REDIHALER] 2 puff IH BID 08/23/18 [ History] Bisoprolol Fumarate [Zebeta] 20 mg PO DAILY 08/23/18 [History] Diltiazem CD (24hr) [Cardizem CD] 180 mg PO DAILY 08/23/18 [History] Famotidine [Pepcid] 20 mg PO DAILY 08/23/18 [History] Loratadine/Pseudophed (12 HR) [Claritin D (12HR)] 1 each PO DAILY 08/23/18 [History] Pravastatin Sodium [Pravachol] 40 mg PO DAILY 08/23/18 [History] Ticagrelor [Brilinta] 90 mg PO BID 08/23/18 [History] hydroCHLOROthiazide [Hydrochlorothiazide] 25 mg PO DAILY 08/23/18 [History] Ticagrelor [Brilinta] 90 mg PO BID #60 tablet 09/15/18 [Rx] Allergies/Adverse Reactions: Allergy/AdvReac Type Severity Reaction Status Date / Time aspirin AdvReac See Verified 08/23/18 20:38 Comments atorvastatin [From Lipitor] AdvReac See Verified 08/23/18 20:38 Comments Iodinated Contrast- Oral and AdvReac Difficulty Verified 08/23/18 20:39 IV Dye Breathing peanut AdvReac Difficulty Verified 08/23/18 20:38 Breathing Penicillins [PCN] AdvReac See Verified 08/23/18 20:39 Comments Certification: Further, I certify that my clinical findings support that this patient is homebound (i.e. absences from home require considerable and taxing effort and are for medical reasons or holiness services or infrequently or short duration when for other reasons) because: Homebound Reason: Leaving home requires considerable and taxing effort due to condition Attestation: My signature below is to certify that this patient is under my care and that I, or nurse practitioner, or a physician's sales and marketing assistant working with me, has a [id number] encounter with this patient.
== END 2018-09-15 15:40 | disposition home health service (06) | DRG 57 ==
LOC: INPGRE 19:18